=== PATIENT | female | born 1940 | race Caucasian/White ===

== ENCOUNTER 2020-07-18 10:24 | Outpatient (CLI) | payer MEDICARE, SELFPAY | END 2020-07-18 10:25 | disposition home or self-care (01) | LOC: ANHCOVIDVC 10:24 | PROVIDERS: PCP Family Medicine; Visit Provider Family Medicine | DX: Z23 Encounter for immunization (principal) | CPT/HCPCS: 0001A; 91300 ==

== ENCOUNTER 2020-08-08 10:24 | Outpatient (CLI) | payer MEDICARE, SELFPAY | END 2020-08-08 10:25 | disposition home or self-care (01) | LOC: ANHCOVIDVC 10:24 | PROVIDERS: PCP Family Medicine; Visit Provider Family Medicine | DX: Z23 Encounter for immunization (principal) | CPT/HCPCS: 0002A; 91300 ==

== ENCOUNTER 2021-03-23 11:38 | Outpatient (CLI) | payer MEDICARE, SELFPAY ==
--- NOTE | ~2021-03-23 | XR_ITS ---
EXAMINATION: XR elbow RT min 3V DATE: 03/23/2021 12:24 INDICATION: Right elbow joint effusion. TECHNIQUE: 5 views of right elbow were obtained. 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 The d istal fracture fragment demonstrates impaction and anterior and medial angulation.. Osteopenia is not ed. There is an acute oblique fracture of proximal ulna just distal to the coronoid process. The dist al fracture fragment demonstrates 1 mm radial displacement. Partially visualized is an old healed fra cture deformity of ulnar diaphysis. There is mild elbow joint osteoarthritis. IMPRESSION: 1. Acute oblique fracture of proximal ulna. 2. 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 Reviewed, dictated and finalized at location A. [employer]
== END 2021-03-23 11:39 | disposition home or self-care (01) ==
LOC: ANHIMG 11:45
PROVIDERS: PCP Family Medicine; Visit Provider Family Medicine
DX: S52.091A Other fracture of upper end of right ulna, initial encounter for closed fracture (principal); S42.491K Other displaced fracture of lower end of right humerus, subsequent encounter for fracture with nonunion; M25.429 Effusion, unspecified elbow
CPT/HCPCS: 73080

== ENCOUNTER 2021-12-13 18:00 | Emergency (ER) | payer MEDICARE, SELFPAY ==
--- NOTE | ~2021-12-13 | CT_ITS ---
EXAMINATION: CT brain wo con DATE: 12/13/2021 18:56 INDICATION: head injury, on blood thinner . TECHNIQUE: Computed tomography (CT) of the head was performed without intravenous contrast. The mA wa s adjusted according to patient size. Iterative reconstruction technique was employed. The dose-lengt h product was 605.33 mGy-cm. COMPARISON: 09/06/2018 FINDINGS: No acute intracranial hemorrhage or extra-axial fluid collection. No hydrocephalus, mass, or herniation. No acute ischemic infarct. Unremarkable dural venous sinus attenuation. No acute osseous abnormality. The aerated spaces are clear. Moderate atrophy and chronic white matter change. Atherosclerotic intracranial calcification. Bilater al lens replacements. IMPRESSION: No acute intracranial process. Reviewed, dictated and finalized at location K.
--- NOTE | ~2021-12-13 | XR_ITS ---
EXAM: XR pelvis 1-2V DATE: 12/13/2021 19:17 HISTORY: fall today. hx kyphoscoliosis, arthritis, osteoporosis . COMPARISON: None available. FINDINGS: Decreased mineralization. No fracture or dislocation. No lytic or blastic lesion. Severe l umbar scoliosis and multilevel degenerative disc disease. Moderate bilateral hip osteoarthritis. No e rosion or periosteal change. Soft tissues within normal limits. IMPRESSION: No acute osseous finding in the pelvis. Reviewed, dictated and finalized at location K.
--- NOTE | ~2021-12-13 | XR_ITS ---
EXAMINATION: XR chest 1V portable Exam Date/Time: 12/13/2021 19:09 CDT HISTORY: Fall today. hx high bp Comparison: None available. RESULT: Lines, tubes, and devices: Bilateral shoulder arthroplasties, incompletely evaluated. Lungs and pleura: Senescent changes, otherwise clear. Cardiomediastinal silhouette: Arch calcification. Other: Severe thoracolumbar scoliosis and osteoporosis. IMPRESSION: No acute cardiopulmonary process. Reviewed, dictated and finalized at location K.
--- NOTE | ~2021-12-13 | CT_ITS ---
EXAMINATION: CT cervical spine wo con DATE: 12/13/2021 18:56 INDICATION: Fall TECHNIQUE: Computed tomography (CT) of the cervical spine was performed without intravenous contrast. Automated exposure control and iterative reconstruction technique were employed. The dose-length pro duct was 175.72 mGy-cm. COMPARISON: 09/06/2018 FINDINGS: Exam limited by severe scoliosis, osteoporosis, and extensive beam hardening artifact. Vertebral Body Alignment: Exaggerated cervical lordosis. Thoracic kyphosis. Craniocervical and atlantoaxial alignment: Moderate degenerative change. Alignment intact. Osseous structures/fracture: No evidence of a lytic or blastic process in the visualized spine. No e vidence of acute cervical fracture fracture. Incidental note of severe height loss at T1, with fractu re lines that appear to involve the posterior cortex, new since the comparison. Cervical soft tissues: The paraspinal soft tissues planes are maintained. Degenerative changes: Multilevel severe degenerative disc disease and facet arthropathy. No severe ce ntral canal or neural foraminal narrowing. IMPRESSION: No acute fracture or traumatic malalignment in the cervical spine. Acute versus chronic severe compre ssion deformity at T1, likely representing a burst fracture given apparent posterior cortex involveme nt. No retropulsion of fragments. Reviewed, dictated and finalized at location K. IMPRESSION: No acute fracture or traumatic malalignment in the cervical spine. Acute versus chronic severe compression deformity at T1, likely representing a burst fractu re given apparent posterior cortex involvement. No retropulsion of fragments.
[2021-12-13 18:03] VITALS: BP 126/86; PULSE 95; RESP 20; TEMP 36.2; O2SAT 93
--- NOTE | 2021-12-13 19:00 | ECG_ITS ---
Measurements Intervals [place] Rate: 99 P: 70 [place]: 172 QRS: -76 QRSD: 97 T: 32 QT: 362 QTc: 465 Interpretive Statements SINUS RHYTHM LEFT ANTERIOR FASCICULAR BLOCK [QRS AXIS <= -45, QR IN I, RS IN II] POSSIBLE ANTERIOR MYOCARDIAL INFARCTION , OF INDETERMINATE AGE [30 ms Q WAVE IN V3/V4, OR R < 0.2 mV IN V4] NO PREVIOUS ECG AVAILABLE FOR COMPARISON Electronically Signed On 12-14-2021 10:19:17 CDT by Denise Hall MD
[2021-12-13 19:16] VITALS: BP 150/80; PULSE 100; RESP 21; O2SAT 100
[2021-12-13 19:28] LABS: Basophils Absolute Auto 0.1 K/mm3 (0.0-0.1); Basophils Percent Auto 0.8 % (0.2-1.2); Eosinophils Absolute Auto 0.1 K/mm3 (0-0.3); Hematocrit 39.2 % (37.0-47.0); Hemoglobin 10.4 g/dL (12.0-15.0); Immature Granulocyte Absolute 0.11 K/mm3 (0.00-0.031); Immature Granulocyte Percent A 1.2 % (0-0.5); Lymphocytes Absolute Auto 2.28 K/mm3 (0.9-3.2); Lymphocytes Percent Auto 25.3 % (18.3-44.2); Mean Corpuscular HGB Conc 26.5 g/dl (32-36); Mean Corpuscular Hemoglobin 18.9 pg (26-34); Mean Corpuscular Volume 71.1 fl (80-100); Monocytes Absolute Auto 0.8 K/mm3 (0.1-0.6); Monocytes Percent Auto 8.4 % (2.6-8.5); Neutrophils Absolute Auto 5.7 K/mm3 (1.3-6.7); Neutrophils Percent Auto 63.3 % (45.5-73.1); Platelet Count Result 287 k/mm3 (150-375); Red Blood Count 5.51 M/mm3 (4.2-5.4); Red Cell Distribution Width 19.3 % (11.5-14.5)
[2021-12-13 19:39] LABS: Anion Gap 11 mmol/L (8-16); Blood Urea Nitrogen 14 mg/dL (7-17); Calcium 8.9 mg/dL (8.4-10.2); Carbon Dioxide 30 mmol/L (22-30); Chloride 98 mmol/L (98-107); Estimated Glomerular Filt Rate > 60; Glucose 90 mg/dL (65-110); Potassium 3.6 mmol/L (3.4-5.0); Sodium 139 mmol/L (137-145)
[2021-12-13 19:43] LABS: INR 1.2; Prothrombin Time 15.1 Seconds (11.1-14.7)
[2021-12-13 19:46] LABS: Hypochromasia 2+ (NORMAL); Platelet Estimate Adequate (Adequate)
[2021-12-13 19:47] LABS: Ovalocytes 1+ (NORMAL); Target Cells 1+ (NORMAL)
[2021-12-13 19:50] LABS: Troponin I < 0.012 ng/mL (0.000-0.034)
[2021-12-13 20:23] LABS: Appearance Urine Slightly Cloudy (Clear); Bilirubin Urine Negative (Negative); Blood Urine Negative (Negative); Glucose Urine UA Negative (Negative); Ketones Urine Negative (Negative); Leukocyte Esterase Ur 2+ LEU/UL (Negative); Nitrate Urine Positive (Negative); Protein Urine Negative (Negative); Urobilinogen Urine 0.2 mg/dL (<2.0)
[2021-12-13 20:26] LABS: Add Urine Microscopic? YES; Color Urine Light Yellow (Yellow)
[2021-12-13 20:29] LABS: Bacteria Urine Trace /hpf; Mucus Urine Rare /lpf; RBC Urine 0-2 /hpf (0-2)
[2021-12-13] MEDS: TETANUS,DIPHTHERIA,AC PERTUSSIS ADULT (0.5 ML) BOOSTRIX IM (20:39)
[2021-12-13 20:43] VITALS: BP 112/85; PULSE 100; RESP 23; O2SAT 94
[2021-12-13] MEDS: CEPHALEXIN 500 MG CAPSULE PO (21:04)
--- NOTE | 2021-12-13 21:08 | ED.GENADULT ---
HPI - General Adult General Chief complaint: Fall Stated complaint: GLF c LOC Time Seen by Provider: 12/13/21 18:34 History of Present Illness HPI narrative: This is an 81-year-old female presenting ED following a fall on thinners. Patient says that she was at dinner where she had an alcoholic drink. She then does not remember what happened until she woke up in an ambulance. Patient has a hematoma and some pain over the right forehead. She denies headache, chest pain, difficulty breathing, abdominal pain, nausea vomiting diarrhea, fever chills. She denies numbness tingling weakness in extremity.She has no complaints this time. She does not know her last tetanus shot was. Related Data Home Medications Medication Instructions Recorded Confirmed calcium carbonate 600 mg-vitamin cap PO 04/14/19 03/23/21 D3 5 mcg (200 unit) capsule (Calcium 600 + D(3)) calcium polycarbophil 625 mg tablet 1,250 mg PO DAILY 04/14/19 03/23/21 cholecalciferol (vitamin D3) 125 5,000 unit PO DAILY 04/14/19 03/23/21 mcg (5,000 unit) tablet folic acid 400 mcg tablet 0.4 mg PO DAILY 04/14/19 03/23/21 multivit with 1 tablet PO DAILY 04/14/19 03/23/21 [id number]-EK-lutein 8 mg iron-400 mcg-300 mcg tablet (Centrum Silver Women) omega3-dha 200 mg-epa 300 mg-othr cap PO 04/14/19 03/23/21 om3 100 mg-fish oil 1,000 mg capsule Allergies Allergy/AdvReac Type Severity Reaction Status Date / Time Sulfa (Sulfonamide Allergy Mild rash Verified 03/23/21 13:38 Antibiotics) Review of Systems Review of Systems: CONSTITUTIONAL: Denies night sweats. EYES: No eye pain ENT: Denies rhinorrhea CARDIOVASCULAR: Denies palpitations RESPIRATORY: Denies hemoptysis GASTROINTESTINAL: Denies hematemesis GENITOURINARY: Denies hematuria. SKIN: Denies rash MUSCULOSKELETAL: Denies myalgia. NEUROLOGIC: Denies weakness. PSYCHIATRIC: Denies delusions PMFSH Past Medical History Medical History Arthritis BP (high blood pressure) Compensated hypothyroidism RICK (generalized anxiety disorder) Kyphoscoliosis Osteoporosis Underweight Vaginal prolapse without uterine prolapse Surgical History Surgical History H/O partial thyroidectomy Social History Social History Social History: , lives with her spouse Smoking packs per day: 0 Smoking cigarettes per day: 0.0 Years smoked: 0 Smoking pack-years: 0.00 Smoking status: Never smoker Second hand tobacco smoke exposure: No Alcohol intake: current Drinks per week: 7 Alcohol use details: 1 drink w/ dinner Substance use: never Substance use type: does not use Gender identity (if verbalized by the patient): Female Sexual Orientation (if Verbalized by the Patient): Straight or Heterosexual Spiritual care concerns: No Agree to blood products: Yes Exam Narrative: APPEARANCE: No apparent distress. Head: atraumatic. EYES: PERRLA/EOMI, NOSE: Normal no drainage NECK: Supple, Trachea midline RESPIRATORY: CTAB, No increased work of breathing. CARDIOVASCULAR: S1S2 appreciated ABDOMINAL: Soft, nontender, nondistended, MUSCULOSKELETAl: No obvious deformities NEURO: Alert. Moving 4/4 extremities SKIN:: Warm, dry. Normal color PSYCHIATRIC: Normal affect Course Vital Signs Vital signs: Vital Signs Temperature 97.2 F L 12/13/21 18:03 Pulse Rate 95 12/13/21 18:03 Respiratory Rate 20 12/13/21 18:03 Blood Pressure 126/86 12/13/21 18:03 Pulse Oximetry 93 12/13/21 18:03 Temperature 97.2 F L 12/13/21 18:03 Pulse Rate 100 12/13/21 20:43 Respiratory Rate 23 H 12/13/21 20:43 Blood Pressure 112/85 12/13/21 20:43 Pulse Oximetry 94 12/13/21 20:43 Procedures Laceration Laceration 1: Date: 12/13/21 Site: face Side (If applicable): right
== END 2021-12-13 21:42 | disposition home or self-care (01) ==
PROVIDERS: Emergency Provider Emergency Medicine; PCP Family Medicine
DX: N39.0 Urinary tract infection, site not specified (principal); S01.81XA Laceration without foreign body of other part of head, initial encounter; Z79.01 Long term (current) use of anticoagulants; M19.90 Unspecified osteoarthritis, unspecified site; I10 Essential (primary) hypertension; E03.9 Hypothyroidism, unspecified; F41.9 Anxiety disorder, unspecified; W19.XXXA Unspecified fall, initial encounter; Z23 Encounter for immunization
CPT/HCPCS: 12011; 36415; 70450; 71045; 72125; 72170; 80048; 81001; 84484; 85025; 85610; 87077; 87086; 87186; 90471; 90715; 93005; 99284; A9270

== ENCOUNTER 2022-02-15 09:35 | Emergency (ER) | payer MEDICARE, SELFPAY ==
[2022-02-15 09:58] VITALS: BP 126/65; PULSE 98; RESP 18; TEMP 36.5; O2SAT 98
--- NOTE | 2022-02-15 13:13 | ED.GENADULT ---
HPI - General Adult General Chief complaint: Unspecified Stated complaint: hemmoroid pain Time Seen by Provider: 02/15/22 12:47 History of Present Illness HPI narrative: Patient is a 1-year-old female here for evaluation of a mass felt in her rectum for the past 4 weeks. Patient has been seen in the ED and also has seen a GI specialist for this issue and was diagnosed with rectal prolapse. She was encouraged to have a flexible sigmoidoscopy and pelvic floor therapy but patient has not pursued either of these interventions yet. She presents today due to increased discomfort and increased sensation of prolapse. Also notes fecal incontinence. She denies any significant rectal bleeding, low back pain, saddle anesthesia, fevers or chills. Related Data Home Medications Medication Instructions Recorded Confirmed calcium carbonate 600 mg-vitamin cap PO 04/14/19 03/23/21 D3 5 mcg (200 unit) capsule (Calcium 600 + D(3)) calcium polycarbophil 625 mg tablet 1,250 mg PO DAILY 04/14/19 03/23/21 cholecalciferol (vitamin D3) 125 5,000 unit PO DAILY 04/14/19 03/23/21 mcg (5,000 unit) tablet folic acid 400 mcg tablet 0.4 mg PO DAILY 04/14/19 03/23/21 multivit with 1 tablet PO DAILY 04/14/19 03/23/21 jyynzhax-kebv-OX-lutein 8 mg iron-400 mcg-300 mcg tablet (Centrum Silver Women) omega3-dha 200 mg-epa 300 mg-othr cap PO 04/14/19 03/23/21 om3 100 mg-fish oil 1,000 mg capsule Allergies Allergy/AdvReac Type Severity Reaction Status Date / Time Sulfa (Sulfonamide Allergy Mild rash Verified 01/31/22 08:30 Antibiotics) Review of Systems Review of Systems: Gen: Denies fevers or chills Eyes: Denies eye pain or visual change ENT: Denies congestion Respiratory: Denies shortness of breath or cough CV: Denies chest pain or palpitations GI: Reports rectal mass . : denies burning, urgency, frequency or hematuria Musculoskeletal: Denies back pain or muscle pain Neuro: Denies numbness, tingling, weakness or focal weakness Skin: Denies rash Except as documented, all other systems reviewed and negative PMFSH Past Medical History Medical History Arthritis BP (high blood pressure) Compensated hypothyroidism RICK (generalized anxiety disorder) Kyphoscoliosis Osteoporosis Rectal prolapse Underweight Vaginal prolapse without uterine prolapse Surgical History Surgical History H/O partial thyroidectomy Social History Social History Social History: , lives with her spouse Smoking packs per day: 0 Smoking cigarettes per day: 0.0 Years smoked: 0 Smoking pack-years: 0.00 Smoking status: Never smoker Second hand tobacco smoke exposure: No Alcohol intake: current Drinks per week: 7 Alcohol use details: 1 drink w/ dinner Substance use: never Substance use type: does not use Gender identity (if verbalized by the patient): Female Sexual Orientation (if Verbalized by the Patient): Straight or Heterosexual Spiritual care concerns: No Agree to blood products: Yes Exam Narrative: APPEARANCE: Thin. Head: Normocephalic and atraumatic. EYES: PERRLA/EOMI, conjunctivae clear NOSE: No nasal drainage EARS: External ear normal in appearance THROAT: Oropharynx is clear. Mucous membranes are moist. NECK: Supple. No adenopathy, no masses. RESPIRATORY: Airway patent, respirations nonlabored. Clear to auscultation bilaterally, no rales, rhonchi, wheezing. CARDIOVASCULAR: Regular rate and rhythm without murmurs, rubs, or gallops. ABDOMINAL: Normoactive bowel sounds. Soft, nontender, nondistended. No rebound tenderness or guarding. : No external hemorrhoids noted on exam. Internal rectal exam with decreased tone. When patient stands, there is a protrusion at the anus that is easily reducible. She is incontinent of s
[2022-02-15 14:01] VITALS: BP 128/68; PULSE 68; RESP 18; O2SAT 98
== END 2022-02-15 14:02 | disposition home or self-care (01) ==
PROVIDERS: Emergency Provider Emergency Medicine; PCP Nurse Practitioner Family
DX: K62.3 Rectal prolapse (principal); I10 Essential (primary) hypertension; E03.9 Hypothyroidism, unspecified; F41.1 Generalized anxiety disorder; M81.0 Age-related osteoporosis without current pathological fracture; Z79.01 Long term (current) use of anticoagulants
CPT/HCPCS: 99281

== ENCOUNTER 2022-12-21 12:37 | Outpatient (CLI) | payer MEDICARE, SELFPAY ==
[2022-12-21 13:02] LABS: Hematocrit 51.6 % (37.0-47.0); Hemoglobin 16.8 g/dL (12.0-15.0); Mean Corpuscular HGB Conc 32.6 g/dl (32-36); Mean Platelet Volume 9.9 fl (7.4-10.4); Platelet Count Result 488 k/mm3 (150-375); Red Cell Distribution Width 14.8 % (11.5-14.5)
[2022-12-21 13:13] LABS: Band Neutrophils Percent 1 % (0-6); Giant Platelets Present; Lymphocytes Absolute Manual 1.69 K/mm3 (1.1-4.5); Metamyelocytes Percent 1 %; Monocytes Absolute Manual 0.39 K/mm3 (0.1-0.90); Monocytes Percent Manual 3 % (3-9); Neutrophils Absolute Manual 10.79 K/mm3 (1.7-7.2); Neutrophils Percent Manual 82 % (46-73); Platelet Estimate Increased (Adequate); Schistocytes None Seen (NORMAL); Total Cells Counted 100
[2022-12-25 11:04] LABS: Erythropoietin (EPO) 7.4 mIU/mL (2.6-18.5)
[2022-12-25 15:24] LABS: BCR/abl Prior Result Not Given
[2022-12-25 16:11] LABS: BCR/abl P190 Not Detected; BCR/abl P210 Not Detected
[2022-12-25 16:12] LABS: BCR/abl P190 Chg YES; BCR/abl P210 Chg YES
[2022-12-28 10:13] LABS: Exon 14; Gene JAK2; JAK2 V617F Mutation Detected (Not Detected); Mutation Frequency 22.4; Mutation Type missense; Specimen Source Blood
== END 2022-12-21 12:38 | disposition home or self-care (01) ==
LOC: ANHLAB 12:40
PROVIDERS: PCP Nurse Practitioner Family; Visit Provider Internal Medicine Hematology & Oncology
DX: D72.829 Elevated white blood cell count, unspecified (principal); D45 Polycythemia vera
CPT/HCPCS: 36415; 81206; 81207; 81270; 82668; 85025; 88184

== ENCOUNTER 2023-02-23 20:17 | Emergency (ER) | payer MEDICARE, SELFPAY ==
--- NOTE | ~2023-02-23 | CT_ITS ---
EXAMINATION: CT brain wo con DATE: 02/23/2023 21:41 INDICATION: Head injury post fall TECHNIQUE: Computed tomography (CT) of the head was performed without intravenous contrast. Sagittal and coronal reconstructions were performed. The mA was adjusted according to patient size. Iterative reconstruction technique was employed. The dose-length product was 681.00 mGy-cm. COMPARISON: head CT dated 12/13/2021 FINDINGS: Occipital scalp laceration with skin stacey. No fracture. No acute intracranial hemorrhage, acute in farction or abnormal extra axial fluid collection. Small old right cerebellar infarct. There is moder ate scattered white matter hypoattenuation consistent with chronic small vessel ischemic disease. Sym metric prominence of the sulci and ventricles consistent with moderate age-appropriate diffuse cerebr al volume loss. No mass/mass effect. Changes of bilateral intraocular lens replacement. The orbits an d mastoid air cells are normal. Mild mucosal thickening at the right ethmoid sinus. IMPRESSION: 1. No fracture or acute intracranial process. 2. Small old right cerebellar infarct. 3. Age-related changes including moderate diffuse volume loss and moderate scattered white matter hyp oattenuation consistent with chronic small vessel ischemic disease. Reviewed, dictated and finalized at location A. IMPRESSION: 1. No fracture or acute intracranial process. 2. Small old right cerebellar infarct. 3. Age-related changes including moderate diffuse volume loss and moderate scat tered white matter hypoattenuation consistent with chronic small vessel ischemi c disease.
--- NOTE | ~2023-02-23 | XR_ITS ---
EXAMINATION: XR chest 1V portable DATE: 02/23/2023 20:50 INDICATION: Dyspnea TECHNIQUE: frontal and lateral views of the chest were obtained. COMPARISON: Chest radiograph dated 12/13/2021 FINDINGS: Minimal right basilar atelectasis/scarring. No other airspace opacities, pulmonary edema, pleural eff usion or pneumothorax. Heart size is normal. Gas within a large retrocardiac hiatal hernia. Bilateral total shoulder arthroplasties. Prominent S-shaped thoracolumbar scoliosis with moderate to severe sp ondylosis. Hepatic and splenic calcifications consistent with old granulomatous disease. IMPRESSION: 1. Persistent minimal right basilar atelectasis/scarring. 2. Large hiatal hernia. Reviewed, dictated and finalized at location A.
--- NOTE | ~2023-02-23 | CT_ITS ---
EXAMINATION: CT cervical spine wo con DATE: 02/23/2023 21:43 INDICATION: Head injury post fall TECHNIQUE: Computed tomography (CT) of the cervical spine was performed without intravenous contrast. Automated exposure control and iterative reconstruction technique were employed. The dose-length pro duct was 292.11 mGy-cm. COMPARISON: 12/13/2021 FINDINGS: Evaluation at the level of C4-C6 is mildly limited by streak artifact resulting from bilateral total shoulder arthroplasties. Mild cervicothoracic levocurvature at the cephalad aspect of the nonvisualiz ed thoracic dextroscoliosis as seen on the prior chest radiograph. 2-3 mm anterolisthesis C7 on T1-T2 -3 mm retrolisthesis C5 on C6 and 102 mm anterolisthesis C4 on C5 which appear unchanged. Chronic T1 burst fracture with 60% anterior vertebral body height loss and couple millimeter retropulsion at the caudal aspect of the posterior wall. Recent-appearing T4 burst fracture with 20% vertebral body heig ht loss and resultant oriented sclerotic fracture plane which extends across the posterior wall witho ut significant retropulsion. This is new since the prior study. Cervical vertebral body heights are n ormal. Severe disc height loss with degenerative endplate changes and severe uncovertebral osteoarthr itis at C4-C5 through C6-C7. Mild disc height loss at C3-C4. There is multilevel mild central canal s tenosis resulting from either posterior disc osteophyte complexes, the patient. Mild spondylolisthesi s and the mild retropulsion at T1. There is also multilevel severe facet osteoarthritis throughout th e cervical and upper thoracic spine. There is posterior fusion across the left C7-T1 and bilateral T1 -T2 facet joints. Moderate neural foraminal stenosis on the right at C5-C6 with mild neural from sten osis at majority the remaining cervical levels. Tortuous aortic arch. There are some scattered mucous plugging in the visualized bilateral upper lungs with pneumatocele in the left upper lobe. Cervical soft tissues are unremarkable. IMPRESSION: 1. Recent-appearing, potentially acute T4 burst fracture with 20% vertebral body height loss but with out retropulsion. 2. Unchanged chronic T1 burst fracture with 60% anterior vertebral body height loss. 3. Severe cervical spondylosis with no acute osseous abnormality. Reviewed, dictated and finalized at location A. IMPRESSION: 1. Recent-appearing, potentially acute T4 burst fracture with 20% vertebral bod y height loss but without retropulsion. 2. Unchanged chronic T1 burst fracture with 60% anterior vertebral body height loss. 3. Severe cervical spondylosis with no acute osseous abnormality.
[2023-02-23 20:21] VITALS: BP 100/66; PULSE 92; RESP 18; TEMP 36.5; O2SAT 85
--- NOTE | 2023-02-23 20:28 | PC.NURSE ---
Pt placed on 2 L per NC for low o2 saturation
[2023-02-23 20:29] VITALS: O2SAT 95
--- NOTE | 2023-02-23 20:38 | ECG_ITS ---
Measurements Intervals [place] Rate: 87 P: 71 [place]: 153 QRS: 180 QRSD: 151 T: -3 QT: 388 QTc: 469 Interpretive Statements SINUS RHYTHM LEFT ATRIAL ENLARGEMENT RIGHT BUNDLE BRANCH BLOCK Electronically Signed On 02-24-2023 12:57:51 CDT by Shaggy Dodge M.D.
[2023-02-23 21:17] LABS: Basophils Absolute Auto 0.1 K/mm3 (0.0-0.1); Basophils Percent Auto 0.9 % (0.2-1.2); Eosinophils Absolute Auto 0.1 K/mm3 (0-0.3); Eosinophils Percent Auto 0.4 % (0-4.4); Hemoglobin 14.7 g/dL (12.0-15.0); Immature Granulocyte Absolute 0.36 K/mm3 (0.00-0.031); Immature Granulocyte Percent A 2.7 % (0-0.5); Lymphocytes Absolute Auto 2.81 K/mm3 (0.9-3.2); Lymphocytes Percent Auto 20.9 % (18.3-44.2); Mean Corpuscular HGB Conc 32.7 g/dl (32-36); Mean Corpuscular Volume 91.8 fl (80-100); Mean Platelet Volume 10.1 fl (7.4-10.4); Monocytes Absolute Auto 0.9 K/mm3 (0.1-0.6); Monocytes Percent Auto 6.7 % (2.6-8.5); Neutrophils Absolute Auto 9.2 K/mm3 (1.3-6.7); Neutrophils Percent Auto 68.4 % (45.5-73.1); Platelet Count Result 461 k/mm3 (150-375); Red Cell Distribution Width 14.3 % (11.5-14.5); White Blood Count 13.5 K/mm3 (4.5-10.0)
[2023-02-23 21:30] LABS: Lactic Acid Reflex 2.2 mmol/L (0.7-2.0)
[2023-02-23 21:32] LABS: Alanine Aminotransferase 23 U/L (6-35); Albumin Level 3.6 g/dL (3.5-5.1); Alkaline Phosphatase 75 U/L (38-126); Anion Gap 6 mmol/L (8-16); Aspartate Amino Transferase 38 U/L (14-36); Bilirubin,Total 0.5 mg/dL (0.2-1.3); Blood Urea Nitrogen 14 mg/dL (7-17); Calcium 9.1 mg/dL (8.4-10.2); Carbon Dioxide 36 mmol/L (22-30); Chloride 89 mmol/L (98-107); Estimated Glomerular Filt Rate > 60; Glucose 75 mg/dL (65-110); Magnesium 1.6 mg/dL (1.6-2.3); Potassium 3.8 mmol/L (3.4-5.0); Sodium 131 mmol/L (137-145)
[2023-02-23 21:35] LABS: INR 2.4; Prothrombin Time 28.2 Seconds (11.1-14.7)
[2023-02-23 21:36] LABS: Partial Thromboplastin Time 46.6 SECONDS (22.3-36.8)
[2023-02-23 21:43] LABS: NT Pro B Type Natriuretic Pept 1630 pg/mL (19.9-100); Troponin I < 0.012 ng/mL (0.000-0.034)
[2023-02-23] MEDS: TETANUS,DIPHTHERIA,AC PERTUSSIS ADULT (0.5 ML) BOOSTRIX IM (21:51)
[2023-02-23 21:52] LABS: Influenza A QL RT-PCR Negative (Negative); Influenza B QL RT-PCR Negative (Negative); SARS-CoV-2 RNA PCR Negative (Negative)
[2023-02-23 22:03] LABS: Procalcitonin 0.1 ng/mL
--- NOTE | 2023-02-23 22:04 | ED.GENADULT ---
HPI - General Adult General Chief complaint: Fall Stated complaint: fall, head lac Time Seen by Provider: 02/23/23 20:21 History of Present Illness HPI narrative: Patient is a 82-year-old female presents emergency department with chief complaint of fall. Patient reports she lives at an assisted living facility and was stepping back from the microwave and fell backwards. The patient states she did not have a loss of consciousness reports she remembers the whole thing reports she has a laceration of the back of her head and otherwise feels okay the patient does report that she has been having some shortness of breath intermittently and has had exertional shortness of breath. Patient denies fever denies chills denies other complaints. Patient does also reports a skin tear on her right forearm Related Data Home Medications Medication Instructions Recorded Confirmed calcium carbonate 600 mg-vitamin cap PO 04/14/19 03/23/21 D3 5 mcg (200 unit) capsule (Calcium 600 + D(3)) calcium polycarbophil 625 mg tablet 1,250 mg PO DAILY 04/14/19 03/23/21 cholecalciferol (vitamin D3) 125 5,000 unit PO DAILY 04/14/19 03/23/21 mcg (5,000 unit) tablet folic acid 400 mcg tablet 0.4 mg PO DAILY 04/14/19 03/23/21 hpzsbmgo-eixm-ywmf 8 mg-folic 400 1 tablet PO DAILY 04/14/19 03/23/21 mcg-K 50 mcg-lutein 300 mcg tablet (Centrum Silver Women) omega3-dha 200 mg-epa 300 mg-othr cap PO 04/14/19 03/23/21 om3 100 mg-fish oil 1,000 mg capsule Allergies Allergy/AdvReac Type Severity Reaction Status Date / Time Sulfa (Sulfonamide Allergy Mild rash Verified 02/23/23 20:25 Antibiotics) Review of Systems Review of Systems: A 10 system review of systems was completed on the patient and is negative except for what is stated in the HPI. Nursing and ancillary documentation was reviewed. [facility] Past Medical History Medical History Arthritis BP (high blood pressure) Compensated hypothyroidism RICK (generalized anxiety disorder) Kyphoscoliosis Osteoporosis Rectal prolapse Underweight Vaginal prolapse without uterine prolapse Surgical History Surgical History H/O partial thyroidectomy Social History Social History Social History: , lives with her spouse Smoking packs per day: 0 Smoking cigarettes per day: 0.0 Years smoked: 0 Smoking pack-years: 0.00 Smoking status: Never smoker Second hand tobacco smoke exposure: No Alcohol intake: current Drinks per week: 7 Alcohol use details: 1 drink w/ dinner Substance use: never Substance use type: does not use Living arrangements: with family Occupation/Education: retired Gender identity (if verbalized by the patient): Female Sexual Orientation (if Verbalized by the Patient): Straight or Heterosexual Spiritual care concerns: No Agree to blood products: Yes Exam Narrative: GENERAL: Well-appearing, well-nourished, and in no acute distress. HEAD: Normocephalic, 1.5 cm laceration of the scalp. EYES: PERRLA and EOMI. ENT: Nares clear, no rhinorrhea or epistaxis. Mucous membranes moist. NECK: Supple. CHEST: Clear to auscultation. No respiratory distress. HEART: Regular rate and rhythm. No murmur heard. Normal peripheral pulses. ABDOMEN: Soft, nontender, nondistended, normal active bowel sounds. EXTREMITIES: Normal range of motion. No edema. SKIN: Warm, dry, no rash. NEURO: No focal deficits. Alert and oriented x3. PSYCH: Normal mood and affect. Course Vital Signs Vital signs: Vital Signs Temperature 36.5 C 02/23/23 20:21 Pulse Rate 92 02/23/23 20:21 Respiratory Rate 18 02/23/23 20:21 Blood Pressure 100/66 02/23/23 20:21 Pulse Oximetry 85 L 02/23/23 20:21 Oxygen Delivery Room Air 02/23/23 20:21 Temperature 36.5
[2023-02-23 22:15] VITALS: BP 134/79; PULSE 95; O2SAT 89
[2023-02-23 22:52] LABS: Appearance Urine Turbid (Clear); Bacteria Urine 4+ /hpf; Bilirubin Urine Negative (Negative); Blood Urine 3+ (Negative); Color Urine Yellow (Yellow); Glucose Urine UA Negative (Negative); Ketones Urine Trace mg/dL (Negative); Leukocyte Esterase Ur 3+ LEU/UL (Negative); Need Manual Microscopic Reviewed; Nitrate Urine Negative (Negative); Protein Urine Trace mg/dL (Negative); RBC Urine 51-100 /hpf (0-2); Specific Grav Ur 1.016 (1.001-1.035); Squamous Epithelial Cell Urine None seen /hpf (Few); Urobilinogen Urine 0.2 mg/dL (<2.0); WBC Clumps Urine Present /HPF; WBC Urine >100 /hpf
[2023-02-23 22:53] LABS: Add Urine Microscopic? YES
[2023-02-23] MEDS: CEPHALEXIN 500 MG CAPSULE PO (23:13)
[2023-02-23 23:20] VITALS: BP 126/81; PULSE 90; RESP 18; O2SAT 89
[2023-02-24 00:14] LABS: Reflex Lactic Acid Yes or No Add Lactic
== END 2023-02-23 23:20 ==
PROVIDERS: Emergency Provider Emergency Medicine
DX: S01.01XA Laceration without foreign body of scalp, initial encounter (principal); S22.040A Wedge compression fracture of fourth thoracic vertebra, initial encounter for closed fracture; N39.0 Urinary tract infection, site not specified; M41.9 Scoliosis, unspecified; R06.02 Shortness of breath; Z23 Encounter for immunization; Z20.822 Contact with and (suspected) exposure to COVID-19; I10 Essential (primary) hypertension; E89.0 Postprocedural hypothyroidism; R63.6 Underweight; Z68.1 Body mass index [BMI] 19.9 or less, adult; M19.90 Unspecified osteoarthritis, unspecified site; M81.0 Age-related osteoporosis without current pathological fracture; Z79.01 Long term (current) use of anticoagulants; I44.7 Left bundle-branch block, unspecified; R94.31 Abnormal electrocardiogram [ECG] [EKG]; K44.9 Diaphragmatic hernia without obstruction or gangrene; M47.812 Spondylosis without myelopathy or radiculopathy, cervical region; M48.54XA Collapsed vertebra, not elsewhere classified, thoracic region, initial encounter for fracture; W18.39XA Other fall on same level, initial encounter
CPT/HCPCS: 12001; 36415; 70450; 71045; 72125; 80053; 81001; 83605; 83735; 83880; 84145; 84484; 85025; 85610; 85730; 87077; 87086; 87186; 87636; 90471; 90715; 93005; 99284; A9270

== ENCOUNTER 2023-04-03 20:50 | Emergency (ER) | payer MEDICARE, SELFPAY ==
--- NOTE | ~2023-04-03 | CT_ITS ---
EXAMINATION: CT cervical spine wo con DATE: 04/03/2023 21:39 INDICATION: fall, on blood thinners TECHNIQUE: Computed tomography (CT) of the cervical spine was performed without intravenous contrast. Automated exposure control and iterative reconstruction technique were employed. The dose-length pro duct was 179.09 mGy-cm. COMPARISON: 02/23/2023. FINDINGS: Vertebral Body Alignment: Intact. Stable grade 1 listheses at C4-5, C5-6, and C7-T1. Craniocervical and atlantoaxial alignment: Moderate degenerative change. Alignment intact. Osseous structures/fracture: No evidence of a lytic or blastic process in the visualized spine. No e vidence of acute fracture. Stable moderate burst deformity at T1. Stable mild burst deformity at T4. Cervical soft tissues: The paraspinal soft tissues planes are maintained. Biapical pleural scarring. Left upper lobe pneumatocele. Degenerative changes: Multilevel degenerative disc disease and facet arthropathy. No severe central c anal or neural foraminal narrowing.. IMPRESSION: No acute fracture or traumatic malalignment in the cervical spine. Reviewed, dictated and finalized at location K. ON BLOCKER
--- NOTE | ~2023-04-03 | CT_ITS ---
EXAMINATION: CT brain wo con DATE: 04/03/2023 21:36 INDICATION: fall, on blood thinners . TECHNIQUE: Computed tomography (CT) of the head was performed without intravenous contrast. The mA wa s adjusted according to patient size. Iterative reconstruction technique was employed. The dose-lengt h product was 681.00 mGy-cm. COMPARISON: 02/23/2023. FINDINGS: No acute intracranial hemorrhage or extra-axial fluid collection. No hydrocephalus, mass, or herniation. No acute ischemic infarct. Unremarkable dural venous sinus attenuation. No acute osseous abnormality. Right frontotemporal scalp contusion. The aerated spaces are clear. Moderate atrophy and chronic white matter change. Atherosclerotic intracranial calcification. Bilater al lens replacements. Old right cerebellar infarct. IMPRESSION: No acute intracranial process. Reviewed, dictated and finalized at location K. HALMIC MEDICAL TECHNOLOGIST
[2023-04-03 20:52] VITALS: BP 151/85; PULSE 88; RESP 16; TEMP 36.2; O2SAT 93
--- NOTE | 2023-04-03 22:30 | ED.FALL ---
HPI - Fall General Chief Complaint: Fall Stated Complaint: fall, head trauma Time Seen by Provider: 04/03/23 21:43 Source: patient Mode of arrival: wheelchair Limitations: no limitations History of Present Illness HPI Narrative: This is an 83-year-old female that presents to the emergency department after a fall today with head injury. Reports she slipped in the shower. She did not lose consciousness. Reports contusion to the right side of her forehead. She is on a blood thinner which prompted her to be seen. Denies any other focal injuries or area of pain. She has been ambulatory since the incident. Denies visual changes, vomiting, numbness, weakness. Related Data Home Medications Medication Instructions Recorded Confirmed calcium carbonate 600 mg-vitamin cap PO 04/14/19 03/14/23 D3 5 mcg (200 unit) capsule (Calcium 600 + D(3)) calcium polycarbophil 625 mg tablet 1,250 mg PO DAILY 04/14/19 03/14/23 cholecalciferol (vitamin D3) 125 5,000 unit PO DAILY 04/14/19 03/14/23 mcg (5,000 unit) tablet folic acid 400 mcg tablet 0.4 mg PO DAILY 04/14/19 03/14/23 [id number] 8 mg-folic 400 1 tablet PO DAILY 04/14/19 03/14/23 mcg-K 50 mcg-lutein 300 mcg tablet (Centrum Silver Women) omega3-dha 200 mg-epa 300 mg-othr cap PO 04/14/19 03/14/23 om3 100 mg-fish oil 1,000 mg capsule fiber tablet PO 03/14/23 03/14/23 polysaccharide iron complex 150 mg 150 mg PO DAILY 03/14/23 03/14/23 iron capsule (iFerex 150) Allergies Allergy/AdvReac Type Severity Reaction Status Date / Time Sulfa (Sulfonamide Allergy Mild rash Verified 04/03/23 21:45 Antibiotics) Review of Systems Review of Systems: CONSTITUTIONAL: Denies fever EYES: Denies visual changes CARDIOVASCULAR: Denies chest pain GASTROINTESTINAL: Denies abdominal pain, vomiting MUSCULOSKELETAL: Denies back pain, joint pain, or myalgia. NEUROLOGIC: Denies numbness, or weakness. All systems reviewed & are unremarkable except as noted in HPI and below PMFSH Past Medical History Medical History Arthritis BP (high blood pressure) Compensated hypothyroidism RICK (generalized anxiety disorder) Kyphoscoliosis Osteoporosis Rectal prolapse Underweight Vaginal prolapse without uterine prolapse Surgical History Surgical History H/O partial thyroidectomy Social History Social History (Updated 03/14/23 @ 10:07 by Mary Cheema) Social History: , lives with her spouse Smoking status: Never smoker Second hand tobacco smoke exposure: No Alcohol intake: current Drinks per week: 1 Substance use: never Substance use type: does not use Lack of Transportation: No Lack of Food: Never True Current Housing: I Have Housing Concerned About Future Housing: No Difficulty Paying Gas/Electric Bills: No Difficulty Paying for Meds: No Currently Unemployed: YES Education: Don't Know Difficulty w/ Childcare or Family Care: No Living arrangements: assisted living Additional living arrangements comments: [facility] Occupation/Education: retired Gender identity (if verbalized by the patient): Female Sexual Orientation (if Verbalized by the Patient): Straight or Heterosexual Spiritual care concerns: No Agree to blood products: Yes Exam Narrative: GENERAL: Elderly, well-nourished, and in no acute distress. HEAD: Normocephalic, atraumatic. EYES: PERRLA and EOMI. ENT: Nares clear, no rhinorrhea or epistaxis. Mucous membranes moist. Oropharynx without tonsillar hypertrophy exudate or other lesions. Bilateral TMs pearly petty non-bulging NECK: Supple. No adenopathy or masses. CHEST: Clear to auscultation. No respiratory distress. No wheezes rales or rhonchi HEART: Regular rate and rhythm. No murmur heard. Normal peripheral pulses. EXTREMITIES: Normal range of motion. No edema or obvious deformit
[2023-04-03 22:34] VITALS: BP 148/99; PULSE 67; RESP 18; O2SAT 95
== END 2023-04-03 22:58 ==
PROVIDERS: Emergency Provider Physician Assistant
DX: S00.83XA Contusion of other part of head, initial encounter (principal); I10 Essential (primary) hypertension; E89.0 Postprocedural hypothyroidism; M81.0 Age-related osteoporosis without current pathological fracture; R63.6 Underweight; Z68.1 Body mass index [BMI] 19.9 or less, adult; Y93.E1 Activity, personal bathing and showering; W18.2XXA Fall in (into) shower or empty bathtub, initial encounter
CPT/HCPCS: 70450; 72125; 99284

== ENCOUNTER 2023-04-09 15:13 | Outpatient (CLI) | payer MEDICARE, SELFPAY ==
--- NOTE | ~2023-04-09 | XR_ITS ---
EXAM: XR abdomen obstructive series DATE: 04/09/2023 15:50 HISTORY: R14.0 - Abdominal distension (gaseous) . COMPARISON: None available. FINDINGS: Senescent changes in the lungs. Likely moderate hiatal hernia. Normal bowel gas pattern. N o organomegaly. No lytic Decreased mineralization. Severe lumbar scoliosis. Bilateral hip osteoarthri tis. Partially visualized shoulder arthroplasty hardware. IMPRESSION: No radiographic evidence of obstruction or ileus. Reviewed, dictated and finalized at location K. SYSTEMS ENGINEER
[2023-04-09 16:07] LABS: Hematocrit 51.3 % (37.0-47.0); Hemoglobin 16.1 g/dL (12.0-15.0)
[2023-04-09 16:16] LABS: Blood Urea Nitrogen 15 mg/dL (7-17); Calcium 9.8 mg/dL (8.4-10.2); Carbon Dioxide > 40 mmol/L (22-30); Chloride 89 mmol/L (98-107); Estimated Glomerular Filt Rate > 60; Glucose 98 mg/dL (65-110); Potassium 4.2 mmol/L (3.4-5.0); Sodium 135 mmol/L (137-145)
[2023-04-09 16:45] LABS: Thyroid Stimulating Hormone 0.802 uIU/mL (0.465-4.680)
[2023-04-09 16:53] LABS: Free T4 Free Thyroxine 1.86 ng/mL (0.78-2.19)
[2023-04-09 17:10] LABS: Vitamin B12 > 1000.0 pg/mL (239-931)
== END 2023-04-09 15:14 | disposition home or self-care (01) ==
PROVIDERS: PCP Family Medicine; Visit Provider Family Medicine
DX: E03.9 Hypothyroidism, unspecified (principal); E87.1 Hypo-osmolality and hyponatremia; E53.8 Deficiency of other specified B group vitamins; D64.9 Anemia, unspecified; R14.0 Abdominal distension (gaseous)
CPT/HCPCS: 36415; 74019; 80048; 82607; 84439; 84443; 85014; 85018

== ENCOUNTER 2023-04-10 15:59 | Emergency (ER) | payer MEDICARE, SELFPAY ==
[2023-04-10] VITALS (14 sets, daily range): BP systolic 153–177; BP diastolic 91–100; PULSE 72–97; RESP 15–37; TEMP 36.8; O2SAT 85–94
--- NOTE | ~2023-04-10 | XR_ITS ---
XR chest 1V portable 04/10/2023 16:18 Indication: Weakness Procedure: AP portable chest Comparison: 02/23/2023 Findings: Heart size normal. Scoliosis. Right basilar atelectasis. There are bilateral shoulder arthr oplasties. No focal pneumonia, edema or effusion. No pneumothorax. Impression: 1: Right basilar atelectasis. Reviewed, dictated and finalized at location B. NIC CHEMISTRY TEACHER Impression: 1: Right basilar atelectasis.
--- NOTE | 2023-04-10 16:05 | ECG_ITS ---
Measurements Intervals [place] Rate: 86 P: 56 [place]: 155 QRS: -72 QRSD: 102 T: 63 QT: 364 QTc: 438 Interpretive Statements SINUS RHYTHM ATRIAL AND VENTRICULAR PREMATURE COMPLEXES LEFT ANTERIOR FASCICULAR BLOCK PEAKED T WAVES- CONSIDER HYPERKALEMIA BASELINE ARTIFACT- I, III, AVR, AVL, AVF ABNORMAL ECG COMPARED TO ECG 02/23/2023 20:45:46 LEFT ANTERIOR FASCICULAR BLOCK NOW PRESENT Electronically Signed On 04-10-2023 16:26:19 POLE INSPECTOR by Uziel Holden D.O.
[2023-04-10 16:24] LABS: Hematocrit 49.7 % (37.0-47.0); Hemoglobin 15.6 g/dL (12.0-15.0); Mean Corpuscular HGB Conc 31.4 g/dl (32-36); Mean Corpuscular Hemoglobin 29.4 pg (26-34); Mean Corpuscular Volume 93.6 fl (80-100); Mean Platelet Volume 10.5 fl (7.4-10.4); Platelet Count Result 369 k/mm3 (150-375); Red Blood Count 5.31 M/mm3 (4.2-5.4); Red Cell Distribution Width 15.2 % (11.5-14.5); White Blood Count 17.2 K/mm3 (4.5-10.0)
[2023-04-10 16:42] LABS: Alanine Aminotransferase 21 U/L (6-35); Albumin Level 3.6 g/dL (3.5-5.1); Alkaline Phosphatase 90 U/L (38-126); Aspartate Amino Transferase 38 U/L (14-36); Bilirubin,Total 0.6 mg/dL (0.2-1.3); Blood Urea Nitrogen 16 mg/dL (7-17); Calcium 9.1 mg/dL (8.4-10.2); Carbon Dioxide > 40 mmol/L (22-30); Chloride 91 mmol/L (98-107); Estimated CRCL calculation 43 ml/min; Estimated Glomerular Filt Rate > 60; Glucose 77 mg/dL (65-110); Potassium 4.7 mmol/L (3.4-5.0); Sodium 134 mmol/L (137-145)
[2023-04-10 17:01] LABS: Atypical Lymphocytes Present; Lymphocytes Absolute Manual 3.44 K/mm3 (1.1-4.5); Monocytes Absolute Manual 0.68 K/mm3 (0.1-0.90); Monocytes Percent Manual 4 % (3-9); Neutrophils Percent Manual 76 % (46-73); Platelet Estimate Adequate (Adequate); Schistocytes None Seen (NORMAL); Total Cells Counted 100
[2023-04-10 17:02] LABS: Anisocytosis 1+ (NORMAL); Hypochromasia 1+ (NORMAL)
--- NOTE | 2023-04-10 17:53 | ED.WEAKNESS ---
HPI - Weakness General Chief complaint: Weakness Stated complaint: weakness Time Seen by Provider: 04/10/23 17:09 History of Present Illness HPI Narrative: 83-year-old female with a history of hyponatremia, hypertension, polycythemia vera, atrial flutter, kyphoscoliosis reports for evaluation for generalized fatigue and weakness for the past 2 weeks. Patient presents with her son who assists with history. The patient states that she has been feeling unwell for the past couple weeks hematuria PCP yesterday. For the patient on PCP told her that she believes that she is constipated prescribed 2 laxatives, however the patient has not taken them yet. She reports to ED today because she told the nurses at [facility] where she resides that she was feeling well and wanted to be evaluated at the ED. the patient denies fever, chest pain or shortness of breath, abdominal pain, nausea, vomiting, dysuria or hematuria, rashes. She states she had a bowel movement earlier today that was normal with a small amount of diarrhea. she denies cough, congestion or sore throat. She does have a bruise to her right catholic and states this is from a prior fall a week and half ago where she reported to the ED and had negative CT scans. She denies vision changes or focal numbness or weakness. Of note, patient's oxygen found to be ranging between 87-90%. patient states she believes her oxygen normally ranges around 90 and states her PCP told her that if it just over low 90s any need to be started on oxygen. They leave her declining oxygen saturation to be secondary to her poor chest expansion due to scoliosis. She denies history of smoking, COPD or asthma. Related Data Home Medications Medication Instructions Recorded Confirmed calcium carbonate 600 mg-vitamin cap PO 04/14/19 04/09/23 D3 5 mcg (200 unit) capsule (Calcium 600 + D(3)) calcium polycarbophil 625 mg tablet 1,250 mg PO DAILY 04/14/19 04/09/23 cholecalciferol (vitamin D3) 125 5,000 unit PO DAILY 04/14/19 04/09/23 mcg (5,000 unit) tablet folic acid 400 mcg tablet 0.4 mg PO DAILY 04/14/19 04/09/23 blnlpbsv-guhw-[id number] 8 mg-folic 400 1 tablet PO DAILY 04/14/19 04/09/23 mcg-K 50 mcg-lutein 300 mcg tablet (Centrum Silver Women) omega3-dha 200 mg-epa 300 mg-othr cap PO 04/14/19 04/09/23 om3 100 mg-fish oil 1,000 mg capsule fiber tablet PO 03/14/23 04/09/23 polysaccharide iron complex 150 mg 150 mg PO DAILY 03/14/23 04/09/23 iron capsule (iFerex 150) Allergies Allergy/AdvReac Type Severity Reaction Status Date / Time Sulfa (Sulfonamide Allergy Mild rash Verified 04/09/23 13:53 Antibiotics) Review of Systems Review of Systems: CONSTITUTIONAL: Denies fever, chills, or sweats. EYES: Denies visual changes, redness, or discharge. ENT: Denies rhinorrhea, congestion, sore throat, or otalgia. CARDIOVASCULAR: Denies chest pain, palpitations, or edema. RESPIRATORY: Denies cough or dyspnea. GASTROINTESTINAL: Denies abdominal pain, nausea, vomiting, or diarrhea. GENITOURINARY: Denies dysuria or hematuria. SKIN: Denies rash or itching. MUSCULOSKELETAL: Denies back pain, joint pain, or myalgia. NEUROLOGIC: Denies headache, numbness, or weakness. PSYCHIATRIC: Denies anxiety or depression. [facility] Past Medical History Medical History Arthritis BP (high blood pressure) Compensated hypothyroidism RICK (generalized anxiety disorder) Kyphoscoliosis Osteoporosis Rectal prolapse Underweight Vaginal prolapse without uterine prolapse Surgical History Surgical History H/O partial thyroidectomy Social History Social History Social History: , lives with her spouse Smoking status: Never smoker Second hand tobacco smoke exposure: No Alcohol intake: current Drinks per week: 1 Substance u
[2023-04-10 17:54] LABS: Appearance Urine Cloudy (Clear); Bacteria Urine 4+ /hpf; Bilirubin Urine Negative (Negative); Blood Urine 3+ (Negative); Color Urine Yellow (Yellow); Glucose Urine UA Negative (Negative); Ketones Urine Negative (Negative); Leukocyte Esterase Ur 2+ LEU/UL (Negative); Nitrate Urine Positive (Negative); Non Pathogenic Casts 0-2; Protein Urine 1+ mg/dL (Negative); RBC Urine >100 /hpf (0-2); Specific Grav Ur 1.018 (1.001-1.035); Squamous Epithelial Cell Urine None seen /hpf (Few); Urobilinogen Urine 0.2 mg/dL (<2.0); WBC Urine 51-100 /hpf
[2023-04-10 18:00] LABS: Add Urine Microscopic? YES
[2023-04-10] MEDS: SODIUM CHLORIDE 0.9% IV 1,000 ML 999 ML IV CONT (18:04)
[2023-04-10 18:26] LABS: Troponin I < 0.012 ng/mL (0.000-0.034)
[2023-04-10 18:53] LABS: Influenza A QL RT-PCR Negative (Negative); Influenza B QL RT-PCR Negative (Negative); RSV RNA, RT-PCR Negative (Negative); SARS-CoV-2 RNA PCR Negative (Negative)
== END 2023-04-10 20:11 ==
PROVIDERS: Emergency Medicine; Emergency Provider Physician Assistant; PCP Family Medicine
DX: R09.02 Hypoxemia (principal); N30.01 Acute cystitis with hematuria; R53.1 Weakness; I10 Essential (primary) hypertension; Z79.899 Other long term (current) drug therapy; Z20.822 Contact with and (suspected) exposure to COVID-19
CPT/HCPCS: 36415; 71045; 80053; 81001; 84484; 85025; 87077; 87086; 87186; 87637; 93005; 96365; 99284; J0696; J7030

== ENCOUNTER 2023-04-16 09:13 | Inpatient (IN) | payer MEDICARE, SELFPAY ==
[2023-04-16] VITALS (49 sets, daily range): BP systolic 98–154; BP diastolic 68–86; PULSE 72–106; RESP 16–34; TEMP 36.2–36.5; O2SAT 93–99; BMI 16.9
--- NOTE | ~2023-04-16 | CT_ITS ---
CT head without contrast Indication: Altered mental status COMPARISON: 04/03/2023 Technique: Serial scans were obtained through the brain without the administration of contrast. Dose reduction technique was used on this scan by utilizing automated exposure control and iterative recon struction technique. The dose-length product (DLP) was 1362.00 mGy-cm. Findings: There is no evidence of intracranial hemorrhage, mass lesion, or acute infarct. The ventri cles and subarachnoid spaces are dilated, consistent with mild to moderate atrophy. Low attenuation regions are seen within the periventricular white matter bilaterally, likely representing changes fro m chronic microvascular ischemic disease. There is no evidence of edema, mass effect or midline shif t. The visualized paranasal sinuses and mastoid air cells are clear. Impression: No intracranial hemorrhage, mass, or acute infarct. Atrophy and chronic white matter changes, as above. Reviewed, dictated and finalized at location . NTIFIC INFORMATICS LEADER Impression: No intracranial hemorrhage, mass, or acute infarct. Atrophy and chronic white matter changes, as above.
--- NOTE | ~2023-04-16 | XR_ITS ---
EXAMINATION: XR chest 1V portable INDICATION: Shortness of breath TECHNIQUE: Portable AP chest at 0952 hours COMPARISON: 04/16/2023 FINDINGS: There are airspace opacities of the lung bases, right greater than left. There are small pl eural effusions. Cardiomegaly is noted. There is a large hiatal hernia. No pneumothorax is identified . There are changes of bilateral total shoulder arthroplasty. There is cranial subluxation of the lef t shoulder arthroplasty. IMPRESSION: 1. Bibasilar airspace opacities, right greater than left, consistent with atelectasis versus pneumoni a. 2. Small right pleural effusion. 3. Large hiatal hernia. Reviewed, dictated and finalized at location F. ON GINNER HELPER IMPRESSION: 1. Bibasilar airspace opacities, right greater than left, consistent with atele ctasis versus pneumonia. 2. Small right pleural effusion. 3. Large hiatal hernia.
--- NOTE | ~2023-04-16 | XR_ITS ---
EXAMINATION: XR barium swallow modified DATE: 04/22/2023 10:04 INDICATION: Aspiration. TECHNIQUE: The patient was given barium-containing material of multiple consistencies to swallow by t he speech pathologist while I performed fluoroscopy. Fluoroscopy exposure time was 0.8 minutes. The n umber of fluoroscopy images saved to the PACS was 1. Dose-area product was 0.855 Gy-cm^2. FINDINGS: The oral stage, pharyngeal stage, and cervical/esophageal stage of the swallow are normal. IMPRESSION: 1. Normal modified barium swallow. 2. Please refer to the speech therapy report for recommendations. Reviewed, dictated and finalized at location A. ERENCE SERVICES DIRECTOR
--- NOTE | ~2023-04-16 | XR_ITS ---
XR chest 1V portable 04/16/2023 09:43 Indication: Shortness of breath Procedure: AP portable chest Comparison: 04/10/2023 Findings: Cardiomegaly. Small pleural effusions, right greater than left. Bibasilar airspace disease is present. No pneumothorax. There are bilateral shoulder arthroplasties. Severe scoliosis. Impression: 1: Bibasilar airspace disease may represent pneumonia and/or atelectasis. 2: Small pleural effusions, right greater than left. 3: Cardiomegaly. Reviewed, dictated and finalized at location [facility] Impression: 1: Bibasilar airspace disease may represent pneumonia and/or atelectasis. 2: Small pleural effusions, right greater than left. 3: Cardiomegaly.
--- NOTE | 2023-04-16 09:25 | ECG_ITS ---
Measurements Intervals [place] Rate: 79 P: 38 [place]: 136 QRS: -72 QRSD: 105 T: 29 QT: 374 QTc: 430 Interpretive Statements SINUS RHYTHM WITH FREQUENT VENTRICULAR PREMATURE COMPLEXES INCOMPLETE RIGHT BUNDLE BRANCH BLOCK [90+ ms QRS DURATION, TERMINAL R IN V1/V2, 40+ ms S IN I/aVL/V4/V5/V6] LEFT ANTERIOR FASCICULAR BLOCK [QRS AXIS <= -45, QR IN I, RS IN II] POOR R-WAVE PROGRESSION COMPARED TO ECG 04/10/2023 16:08:45 INCOMPLETE RIGHT BUNDLE-BRANCH BLOCK NOW PRESENT THE PEAKING OF THE T-WAVES WAVES IS NOT PRONOUNCED Electronically Signed On 04-16-2023 13:33:31 TUB PULLER by Cecilia Francisco M.D.
--- NOTE | 2023-04-16 09:59 | ED.SOB ---
HPI - SOB/Dyspnea General Chief Complaint: Shortness of Breath/Dyspnea Stated Complaint: SOB x days per [facility] staff History of Present Illness HPI Narrative: 83-year-old female presenting to the emergency department for evaluation of shortness of breath. Patient does have history of COPD. family states that the patient had a recent urinary tract infection and recent diagnosis of pneumonia and it was only in the last few weeks that she was placed oxygen by nasal cannula. This morning the patient was complaining shortness of breath at the nursing facility. When EMS arrived patient states she no longer had shortness of breath. Upon arrival to the emergency department patient is saturating between 96 and 99% her normal 3 L and patient denies any complaints at this time. Patient states she does not ambulate and typically uses a wheelchair. family states that typically the patient is able to be more physically active and that this is a change from her baseline. Related Data Home Medications Medication Instructions Recorded Confirmed calcium carbonate 600 mg-vitamin cap PO 04/14/19 04/09/23 D3 5 mcg (200 unit) capsule (Calcium 600 + D(3)) calcium polycarbophil 625 mg tablet 1,250 mg PO DAILY 04/14/19 04/09/23 cholecalciferol (vitamin D3) 125 5,000 unit PO DAILY 04/14/19 04/09/23 mcg (5,000 unit) tablet folic acid 400 mcg tablet 0.4 mg PO DAILY 04/14/19 04/09/23 [id number]-[id number] 8 mg-folic 400 1 tablet PO DAILY 04/14/19 04/09/23 mcg-K 50 mcg-lutein 300 mcg tablet (Centrum Silver Women) omega3-dha 200 mg-epa 300 mg-othr cap PO 04/14/19 04/09/23 om3 100 mg-fish oil 1,000 mg capsule fiber tablet PO 03/14/23 04/09/23 polysaccharide iron complex 150 mg 150 mg PO DAILY 03/14/23 04/09/23 iron capsule (iFerex 150) Allergies Allergy/AdvReac Type Severity Reaction Status Date / Time Sulfa (Sulfonamide Allergy Mild rash Verified 04/09/23 13:53 Antibiotics) Review of Systems Review of Systems: All systems reviewed & are unremarkable except as noted in HPI and below PMFSH Past Medical History Medical History (Updated 04/16/23 @ 15:33 by Maude Perea PA-C) Arthritis B12 deficiency Chronic anticoagulation Chronic respiratory failure with hypoxia, on home oxygen therapy Generalized anxiety disorder Hypertension Hypothyroidism Kyphoscoliosis Mitral regurgitation and aortic stenosis Osteoporosis Paroxysmal atrial fibrillation Paroxysmal atrial flutter Polycythemia Rectal prolapse Vaginal prolapse without uterine prolapse Surgical History Surgical History (Updated 04/16/23 @ 15:06 by Maude Perea PA-C) History of cataract extraction with lens replacement History of colonoscopy (07/2000) Left-sided diverticulosis, collagenous/microscopic colitis, internal hemorrhoidal tissue. History of esophagogastroduodenoscopy (06/2000) Esophageal stricture and hiatal hernia. History of inguinal hernia repair History of partial thyroidectomy History of replacement of both shoulder joints Family History Family History (Updated 04/16/23 @ 15:16 by Maude Perea PA-C) Other Family history non-contributory Social History Social History (Updated 04/16/23 @ 15:19 by Maude Perea PA-C) Social History: Surrogate medical decision maker: Ayan Wright, son. Code status: Full code. Smoking status: Never smoker Second hand tobacco smoke exposure: No Alcohol intake: current Drinks per week: 21 Alcohol use details: History of alcohol abuse. Substance use: never Substance use type: does not use Lack of Transportation: No Lack of Food: Never True Current Housing: I Have Housing Concerned About Future Housing: No Difficulty Paying Gas/Electric Bills: No Difficulty Paying for Meds: No Currently Unemployed: No Education: Bachelor's Degree Difficulty w/ Childcare or Family Care: No Living arrangements: assisted living Additional living arrangements com
[2023-04-16 10:22] LABS: Influenza A QL RT-PCR Negative (Negative); Influenza B QL RT-PCR Negative (Negative); RSV RNA, RT-PCR Negative (Negative); SARS-CoV-2 RNA PCR Negative (Negative)
[2023-04-16 11:14] LABS: Basophils Absolute Auto 0.1 K/mm3 (0.0-0.1); Basophils Percent Auto 0.8 % (0.2-1.2); Eosinophils Absolute Auto 0.1 K/mm3 (0-0.3); Eosinophils Percent Auto 0.6 % (0-4.4); Hematocrit 55.2 % (37.0-47.0); Hemoglobin 16.3 g/dL (12.0-15.0); Immature Granulocyte Absolute 0.99 K/mm3 (0.00-0.031); Immature Granulocyte Percent A 7.6 % (0-0.5); Lymphocytes Absolute Auto 1.18 K/mm3 (0.9-3.2); Lymphocytes Percent Auto 9.1 % (18.3-44.2); Mean Corpuscular HGB Conc 29.5 g/dl (32-36); Mean Corpuscular Hemoglobin 28.5 pg (26-34); Mean Corpuscular Volume 96.7 fl (80-100); Mean Platelet Volume 10.8 fl (7.4-10.4); Monocytes Percent Auto 7.4 % (2.6-8.5); Neutrophils Absolute Auto 9.7 K/mm3 (1.3-6.7); Neutrophils Percent Auto 74.5 % (45.5-73.1); Platelet Count Result 283 k/mm3 (150-375); Red Blood Count 5.71 M/mm3 (4.2-5.4); Red Cell Distribution Width 15.3 % (11.5-14.5)
[2023-04-16 11:47] LABS: Blood Urea Nitrogen 14 mg/dL (7-17); Calcium 9.6 mg/dL (8.4-10.2); Carbon Dioxide > 40 mmol/L (22-30); Chloride 83 mmol/L (98-107); Estimated Glomerular Filt Rate > 60; Glucose 89 mg/dL (65-110); Potassium 3.9 mmol/L (3.4-5.0); Sodium 135 mmol/L (137-145)
--- NOTE | 2023-04-16 11:52 | PC.NURSE ---
Pt more lethargic than on arrival. Still responds to verbal stimuli. Son at bedside and states she drinks alcohol daily and they cleaned out her apartment 2 days ago so she could not drink anymore.
--- NOTE | 2023-04-16 12:01 | PC.NURSE ---
Per Jigar CAUSEY at [facility] assisted living, pt has PMH of alcohol abuse and some containers were removed from her living area a day ago. Pt is currently fatigued, family at bedside states she is not at her baseline. EDP Dr Vanegas made aware and added ETOH level.
[2023-04-16 12:45] LABS: Ethanol < 10 mg/dL (<10)
[2023-04-16 13:07] LABS: Appearance Urine Clear (Clear); Bacteria Urine None Seen /hpf; Bilirubin Urine Negative (Negative); Blood Urine Negative (Negative); Color Urine Yellow (Yellow); Glucose Urine UA Negative (Negative); Ketones Urine Trace mg/dL (Negative); Leukocyte Esterase Ur Negative LEU/UL (Negative); Need Manual Microscopic Reviewed; Nitrate Urine Negative (Negative); Protein Urine Trace mg/dL (Negative); RBC Urine 21-50 /hpf (0-2); Specific Grav Ur 1.018 (1.001-1.035); Squamous Epithelial Cell Urine None seen /hpf (Few); Urobilinogen Urine 0.2 mg/dL (<2.0); WBC Urine 0-5 /hpf
[2023-04-16 13:08] LABS: Add Urine Microscopic? YES
--- NOTE | 2023-04-16 13:20 | PC.NURSE ---
Sleeping on stretcher. Pt arousable to verbal stimuli.
[2023-04-16] MEDS: SODIUM CHLORIDE 0.9% IV 500 ML 999 ML IV CONT (14:02)
[2023-04-16 14:29] LABS: Base Excess ABG 15.1 mEq/l (+/-2.0); Carboxyhemoglobin 1.8 % THb (0-2.0); Fractional Inspired Oxygen 34 %; HCO3 ABG 45.3 mEq/l (22.0-26.0); Methemoglobin ABG 0.4 %THb (0-1.5); Oxygen Content ABG 18.9 %vol (16.0-22.0); Oxygen Saturation ABG 89.4 % (95.0-100.0); Oxyhemoglobin 88.5 % THb (90.0-100.0); PO2 FiO2 Ratio Arterial Blood 1.82 %; Reduced Hemoglobin 9.3 %THb (0-5.0); Total Hemoglobin 15.2 g/dL (12.0-18.0); pH ABG 7.356 (7.350-7.450)
[2023-04-16 14:30] LABS: Device NASAL CANNULA; Modified Allen's Test Pass; PCO2 ABG 82.8 mmHg (35.0-45.0); Site Drawn RIGHT RADIAL
--- NOTE | 2023-04-16 14:59 | PM.IMHP ---
H&P: HPI History of Present Illness Date/Time: 04/16/23 14:00 Chief Complaint: Shortness of breath. Narrative: This is an 83-year-old female with severe kyphoscoliosis causing chronic respiratory failure with hypoxia on oxygen, hypertension, hypothyroidism, paroxysmal atrial fibrillation/which flutter on chronic anticoagulation polycythemia, and anxiety who presented to the emergency department via EMS from [facility] for evaluation of shortness of breath. She is able to provide some history however her son provides additional information as she is a bit lethargic. She has a history of falls and has been seen in the emergency department several times for the same over the past month and half for so. Typically she ambulates with a walker but has been in a wheelchair more often due to the falls. She reports having poor balance which causes the falls. Her last visit to the ER was on 04/10/2023 at which time she presented for evaluation of fatigue and weakness for couple of weeks. During that visit her SpO2 seemed to however in the high 80s to low 90s and she reported that she had recently been started on oxygen at 3 L of the cannula though she was not always using it however has been compliant since that time. She was sent home with a prescription for Keflex for urinary tract infection and her urine culture did grow out fluoroquinolone resistant E coli. She is compliant with antibiotics she goes on to say she really had no symptoms of the UTI anyway. Family members report that she continues to be more fatigued and less interactive than usual. This morning son received a phone call that she appeared increasingly short of breath and that she was being brought to the ER. She was afebrile on arrival with stable blood pressures. SpO2 has been in the high 90s on her prescribed 3 L. Labs were significant for WBC count 13.0, hemoglobin 16.3, sodium 135, chloride 83, carbon dioxide greater than 40. She tested negative for influenza, RSV, and COVID. Brain CT was without acute findings. Chest x-ray was read as showing bibasilar airspace disease which could be pneumonia or atelectasis, small pleural effusions, and cardiomegaly. ABG showed a pH of 7.356, pCO2 82.8, PO2 62.0. She has been started on BiPAP and she is being admitted in this setting for further treatment. At the time my evaluation she is alert but a bit confused. She does not necessarily feel any more short of breath than usual. She complains of pain in the right elbow with movement. She denies vertigo, visual changes, fever, chills, sweats, chest pain, pleuritic pain, abdominal pain, nausea, vomiting, diarrhea, and dysuria. Review of Systems Review of Systems: Twelve systems were reviewed. No fever chills, or sweats. Nonproductive cough. No chest or pleuritic. She denies syncope and near syncope. No nausea, vomiting, or diarrhea. In fact she feels a bit constipated. Denies dysuria. Except as documented, all other systems were reviewed and are negative. [facility] Past Medical History Medical History (Updated 04/16/23 @ 15:33 by Maude Perea PA-C) Arthritis B12 deficiency Chronic anticoagulation Chronic respiratory failure with hypoxia, on home oxygen therapy Generalized anxiety disorder Hypertension Hypothyroidism Kyphoscoliosis Mitral regurgitation and aortic stenosis Osteoporosis Paroxysmal atrial fibrillation Paroxysmal atrial flutter Polycythemia Rectal prolapse Vaginal prolapse without uterine prolapse Surgical History Surgical History (Updated 04/16/23 @ 15:06 by Maude Perea PA-C) History of cataract extraction with lens replacement History of colonoscopy (07/2000) Left-sided diverticulosis, collagenous/microscopic colitis, internal hemorrhoidal tissue. History of esophagogastroduodenoscopy (06/2000) Esophageal stricture and hiatal hernia. History of inguinal hernia repair History of partial thyroidectomy History of replacement of both shoulder joints
[2023-04-16] MEDS: AZITHROMYCIN 500 MG/NS 250 ML 500 MG/250 ML BAG 250 MG IVPB (15:36)
--- NOTE | 2023-04-16 16:39 | ADMGEN ---
This patient, Elsa Wright, was admitted to IMU Room 232-01 at 1618. Patient/family oriented to hospital policies and general routines including ID bracelet, bed and alarms, visiting hours, pain management, procedures, bathroom and other care routines, personal items, smoking policy, room service/diet, and visiting hours. Information on how to activate the Rapid Response Team has been discussed. Patient/Family are encouraged to report perceived risks to care and to ask questions if they do not understand what they are told or what they should do.
[2023-04-16 16:49] LABS: Alveolar/Arterial O2 Gradient 26.1 mmHg; Base Excess ABG 14.1 mEq/l (+/-2.0); Carboxyhemoglobin 0.7 % THb (0-2.0); Fractional Inspired Oxygen 24 %; HCO3 ABG 42.5 mEq/l (22.0-26.0); Methemoglobin ABG 0.3 %THb (0-1.5); Oxygen Saturation ABG 91.5 % (95.0-100.0); Oxyhemoglobin 91.2 % THb (90.0-100.0); PO2 ABG 63.2 mmHg (80.0-100.0); PO2 FiO2 Ratio Arterial Blood 2.63 %; Reduced Hemoglobin 7.8 %THb (0-5.0); Total Hemoglobin 15.6 g/dL (12.0-18.0); pH ABG 7.409 (7.350-7.450)
[2023-04-16 16:51] LABS: Device BIPAP; Modified Allen's Test Pass; PCO2 ABG 68.8 mmHg (35.0-45.0); Site Drawn RIGHT RADIAL
[2023-04-16 16:52] LABS: Expiratory Pressure 6 cmH2O; Inspiratory Pressure 18 cmH2O
[2023-04-16 22:28] LABS: Alanine Aminotransferase 20 U/L (6-35); Albumin Level 3.5 g/dL (3.5-5.1); Alkaline Phosphatase 113 U/L (38-126); Aspartate Amino Transferase 34 U/L (14-36); Bilirubin,Total 0.9 mg/dL (0.2-1.3); Blood Urea Nitrogen 15 mg/dL (7-17); Calcium 9.4 mg/dL (8.4-10.2); Carbon Dioxide > 40 mmol/L (22-30); Chloride 84 mmol/L (98-107); Estimated Glomerular Filt Rate > 60; Glucose 67 mg/dL (65-110); Magnesium 1.5 mg/dL (1.6-2.3); Potassium 4.3 mmol/L (3.4-5.0); Sodium 136 mmol/L (137-145)
[2023-04-16] MEDS: carvediloL 6.25 MG TABLET BY MOUTH (22:30)
[2023-04-17] VITALS (29 sets, daily range): BP systolic 101–133; BP diastolic 48–80; PULSE 80–103; RESP 18–23; TEMP 35.8–36.6; O2SAT 93–100; BMI 17.6
[2023-04-17] MEDS: IPRATROPIUM BR 0.02% INH SOLN 0.5 MG/2.5 ML VIAL INHALATION ×4 (03:20→21:18)
[2023-04-17] MEDS: ALBUTEROL SULFATE NEB 2.5 MG/3 ML INH INHALATION ×4 (03:20→21:18)
[2023-04-17 04:35] LABS: Hematocrit 51.4 % (37.0-47.0); Hemoglobin 15.7 g/dL (12.0-15.0); Mean Corpuscular HGB Conc 30.5 g/dl (32-36); Mean Corpuscular Volume 94.8 fl (80-100); Mean Platelet Volume 10.4 fl (7.4-10.4); Platelet Count Result 321 k/mm3 (150-375); Red Blood Count 5.42 M/mm3 (4.2-5.4)
[2023-04-17 05:07] LABS: Blood Urea Nitrogen 15 mg/dL (7-17); Calcium 9.2 mg/dL (8.4-10.2); Carbon Dioxide > 40 mmol/L (22-30); Chloride 83 mmol/L (98-107); Estimated Glomerular Filt Rate > 60; Glucose 55 mg/dL (65-110); Potassium 3.9 mmol/L (3.4-5.0); Sodium 135 mmol/L (137-145)
[2023-04-17] MEDS: DEXTROSE 50% 25 GM/50 ML SYRINGE IV PUSH (05:25)
[2023-04-17 05:45] LABS: Glucose Point of Care 125 mg/dl (65-105)
[2023-04-17] MEDS: LEVOTHYROXINE SODIUM 100 MCG TABLET PO (07:23)
[2023-04-17 07:49] LABS: Glucose Point of Care 100 mg/dl (65-105)
[2023-04-17] MEDS: carvediloL 6.25 MG TABLET BY MOUTH ×2 (08:27→21:54)
[2023-04-17] MEDS: THERAPEUTIC MULTIVITAMINS/MINERALS TAB (*BKC) 2 TABLET PO (08:27)
[2023-04-17] MEDS: CHOLECALCIFEROL 1,000 UNITS TABLET 1000 UNITS BY MOUTH (08:27)
[2023-04-17] MEDS: SENNOSIDES 8.6 MG TABLET PO (08:28)
[2023-04-17] MEDS: POTASSIUM CHLORIDE 10 MEQ ER TABLET PO (08:29)
[2023-04-17] MEDS: hydroCHLOROthiazide 25 MG TABLET PO (08:29)
[2023-04-17] MEDS: POLYSACCHARIDE IRON COMPLEX 150 MG CAPSULE PO (08:29)
[2023-04-17] MEDS: ESCITALOPRAM OXALATE 10 MG TABLET BY MOUTH (08:29)
[2023-04-17 12:01] LABS: Glucose Point of Care 259 mg/dl (65-105)
--- NOTE | 2023-04-17 12:05 | PCSTNOTE ---
Please refer to the Bedside Swallow Evaluation in the EMR. Please note, silent aspiration cannot be ruled out at bedside.
--- NOTE | 2023-04-17 14:36 | PC.NURSE ---
On 04/17/23, the student, Bree RUIZ, provided care and completed [facility] documentation on this patient. I have reviewed the student's documentation and agree with the findings.
[2023-04-17] MEDS: AZITHROMYCIN 500 MG/NS 250 ML 500 MG/250 ML BAG 250 MG IVPB (15:07)
--- NOTE | 2023-04-17 15:09 | PCCCNOTE ---
On 04/17/23, the student, Sendy Enamorado, provided care and completed [facility] documentation on this patient. I have reviewed the student's documentation and agree with the findings.
--- NOTE | 2023-04-17 15:41 | PM.IMPN ---
Progress Note: A&P Assessment and Plan (1) Chronic respiratory failure with hypoxia, on home oxygen therapy: Code(s): J96.11 - Chronic respiratory failure with hypoxia; Z99.81 - Dependence on supplemental oxygen Status: Acute (2) History of fall: Code(s): Z91.81 - History of falling Status: Acute (3) Chronic anticoagulation: Code(s): Z79.01 - long-term (current) use of anticoagulants Status: Acute (4) Paroxysmal atrial fibrillation: Code(s): I48.0 - Paroxysmal atrial fibrillation Status: Acute (5) Hypertension: Code(s): I10 - Essential (primary) hypertension Status: Acute Plan 83-year-old female with severe kyphoscoliosis causing chronic respiratory failure with hypoxia on oxygen, hypertension, hypothyroidism, paroxysmal atrial fibrillation/which flutter on chronic anticoagulation polycythemia, and anxiety who presented to the emergency department via EMS from [facility] for evaluation of shortness of breath.Chest x-ray was read as showing bibasilar airspace disease which could be pneumonia or atelectasis, small pleural effusions, and cardiomegaly. 1. Acute on chronic hypoxic respiratory failure: Secondary to pneumonia Currently on baseline O2 support of 3 L Monitor leukocytosis Continue with azithromycin and ceftriaxone Continue with albuterol, ipratropium Will obtain blood culture Await echocardiogram 2.? UTI: Continue with ceftriaxone No culture was sent, will treat empirically 3. Hypertension: Continue with, hydrochlorothiazide, Coreg 4. PT/OT 5. Dysphagia: Speech therapist has recommended soft diet 6. Code status: full 7. DVT prophylaxis: Lovenox 8. Disposition: Pending improvement Time Spent With Patient Time with patient: 15 - 25 minutes Subjective Date/time seen: 04/17/23 15:41 Interval history: Low blood glucose this morning Review of Systems Review of Systems: Twelve systems were reviewed. No fever chills, or sweats. Nonproductive cough. No chest or pleuritic. She denies syncope and near syncope. No nausea, vomiting, or diarrhea. In fact she feels a bit constipated. Denies dysuria. Except as documented, all other systems were reviewed and are negative. Exam Narrative: General: Thin, frail, chronically ill-appearing elderly female HEENT: Reddish bruise over the right eyelid from my fall last week. Neck: Supple. No midline vertebral tenderness. Chest: Severe kyphoscoliosis. Respiratory: Lung sounds are diminished throughout both bases. Faint wheezing. Cardiovascular: Regular rate and rhythm with S1-S2. Systolic murmurs at the upper sternal border at the apex. Gastrointestinal: Abdomen is soft, flat, nontender, and nondistended with positive bowel sounds. Skin: Warm and dry. Bruise on the right eyelid, skin tear on the right elbow. Scattered bruises on the upper extremities. Extremities: No cyanosis, clubbing, or edema. Radial and pedal pulses intact. No palpable knots or cords. 0 pulses palpable. Neurological: Alert to name, month and day of , and president. Psychiatric: Confused. Cooperative. Objective Data Vital Signs Vital Signs: Vital Signs - 24 hr 04/16/23 15:42 04/16/23 16:20 04/16/23 16:59 Temperature 97.3 F L Pulse Rate 75 86 87 Respiratory Rate 18 23 H 21 H Blood Pressure 154/75 H 127/86 Pulse Oximetry 96 94 97 Oxygen Delivery BiPAP Oxygen Flow Rate Fraction of Inspired Oxygen 04/16/23 18:00 04/16/23 20:57 04/16/23 20:00 Temperature 97.7 F Pulse Rate 79 88 81 Respiratory Rate 30 H Blood Pressure 140/86 Pulse Oximetry 97 Oxygen Delivery Oxygen Flow Rate Fraction of Inspired Oxygen 04/16/23 20:00 04/16/23 23:52 04/17/23 00:00 Temperature 97.1 F L Pulse Rate 88 91 81 Respiratory Rate 30 H 23 H Blood Pressure 145/78 H Pulse Oximetry 94 93 Oxygen Delivery BiPAP Oxygen Flow Rate Fraction of Inspired Oxyg
[2023-04-17 20:38] LABS: Glucose Point of Care 165 mg/dl (65-105)
--- NOTE | 2023-04-17 22:15 | ECHO_ITS ---
Patient Info Name: Elsa Wright Age: 83 years : 1940 Gender: Female Ht: 59 in Wt: 83 lbs BSA: 1.24 m2 HR: 97 bpm BP: 101 / 67 mmHg Heart Rhythm: Tachycardia Technical Quality: Good Exam Date: 04/17/2023 9:55 AM Exam Location: Echo Lab Patient Status: Inpatient Admit Date: 04/16/2023 Staff Ordering Physician: Maude Perea PA-C Emergency Generator Mechanic: Harini Sood RDCS Attending Provider: Luis Daniel Alford MD Referring Physician: Brit TERESA; Exam Type: CA echo doppler color flow Study Info Indications - hypoxia, a fib, htn Complete two-dimensional, color flow and Doppler transthoracic echocardiogram is performed. Summary 1. Complete two-dimensional, color flow and Doppler transthoracic echocardiogram is performed. 2. Left ventricular chamber dimension is normal. 3. Left ventricular systolic function is hyperdynamic, estimated at >70%. 4. There is moderately increased left ventricular wall thickness. 5. The left ventricular diastolic function is grade I diastolic dysfunction. 6. Right ventricular chamber dimension is moderately enlarged. 7. Right ventricular systolic function is normal. 8. Left atrial chamber dimension is severely enlarged. 9. Right atrial chamber dimension is severely enlarged. 10. There is severe aortic valve calcification. 11. There is mild to moderate aortic valve stenosis with a peak velocity of 202 cm/s, mean gradient of 9 mmHg, and aortic valve area of 1.2 cm2. 12. There is moderate aortic valve regurgitation. 13. There is moderate tricuspid valve regurgitation. 14. Estimated pulmonary arterial systolic pressure is 43 mmHg. Left Ventricle Left ventricular chamber dimension is normal. Left ventricular systolic function is hyperdynamic, estimated at >70%. There is moderately increased left ventricular wall thickness. Left ventricular septal wall motion is abnormal with septal motion related to bundle branch block. The left ventricular diastolic function is grade I diastolic dysfunction. Right Ventricle Right ventricular chamber dimension is moderately enlarged. Right ventricular systolic function is normal. Left Atria Left atrial chamber dimension is severely enlarged. Right Atria Right atrial chamber dimension is severely enlarged. Atrial Septum Intact interatrial septum visualized by color flow imaging. Aortic Valve The aortic valve is probable trileaflet. There is mild to moderate aortic valve stenosis with a peak velocity of 202 cm/s, mean gradient of 9 mmHg, and aortic valve area of 1.2 cm2. There is moderate aortic valve regurgitation. There is severe aortic valve calcification. Pulmonic Valve The pulmonic valve is not well visualized. Mitral Valve The mitral valve has thickened leaflets. There is trace mitral valve regurgitation. The mitral valve annulus is severely calcified. Tricuspid Valve The tricuspid valve leaflets are thickened. There is moderate tricuspid valve regurgitation. Estimated pulmonary arterial systolic pressure is 43 mmHg. Pericardium/Pleural There is no pericardial effusion. Inferior Vena Cava Normal inferior vena cava with >50% collapse upon inspiration consistent with normal right atrial pressure, 3 mmHg. Aorta The aortic root size at the sinus of Valsalva is normal. Left Ventricular Outflow Tract Name Value Normal LVOT 2D
[2023-04-18] VITALS (24 sets, daily range): BP systolic 109–154; BP diastolic 65–78; PULSE 77–104; RESP 18–24; TEMP 36.3–36.6; O2SAT 84–98
[2023-04-18] MEDS: IPRATROPIUM BR 0.02% INH SOLN 0.5 MG/2.5 ML VIAL INHALATION ×4 (03:03→17:59)
[2023-04-18] MEDS: ALBUTEROL SULFATE NEB 2.5 MG/3 ML INH INHALATION ×4 (03:06→17:59)
[2023-04-18 04:59] LABS: Basophils Absolute Auto 0.1 K/mm3 (0.0-0.1); Basophils Percent Auto 0.5 % (0.2-1.2); Eosinophils Absolute Auto 0.1 K/mm3 (0-0.3); Eosinophils Percent Auto 0.7 % (0-4.4); Hematocrit 49.8 % (37.0-47.0); Hemoglobin 15.2 g/dL (12.0-15.0); Immature Granulocyte Absolute 0.52 K/mm3 (0.00-0.031); Immature Granulocyte Percent A 3.7 % (0-0.5); Lymphocytes Absolute Auto 1.25 K/mm3 (0.9-3.2); Mean Corpuscular HGB Conc 30.5 g/dl (32-36); Mean Corpuscular Hemoglobin 28.8 pg (26-34); Mean Corpuscular Volume 94.5 fl (80-100); Mean Platelet Volume 10.2 fl (7.4-10.4); Monocytes Absolute Auto 1.1 K/mm3 (0.1-0.6); Monocytes Percent Auto 8.1 % (2.6-8.5); Neutrophils Absolute Auto 10.8 K/mm3 (1.3-6.7); Platelet Count Result 274 k/mm3 (150-375); Red Blood Count 5.27 M/mm3 (4.2-5.4); Red Cell Distribution Width 14.6 % (11.5-14.5); White Blood Count 13.9 K/mm3 (4.5-10.0)
[2023-04-18 05:10] LABS: Potassium 3.8 mmol/L (3.4-5.0)
[2023-04-18 05:17] LABS: Blood Urea Nitrogen 20 mg/dL (7-17); Calcium 8.8 mg/dL (8.4-10.2); Carbon Dioxide > 40 mmol/L (22-30); Chloride 84 mmol/L (98-107); Estimated Glomerular Filt Rate > 60; Glucose 85 mg/dL (65-110); Magnesium 1.5 mg/dL (1.6-2.3); Sodium 134 mmol/L (137-145)
[2023-04-18] MEDS: LEVOTHYROXINE SODIUM 100 MCG TABLET PO (06:23)
[2023-04-18 07:55] LABS: Glucose Point of Care 82 mg/dl (65-105)
[2023-04-18] MEDS: CHOLECALCIFEROL 1,000 UNITS TABLET 1000 UNITS BY MOUTH (08:23)
[2023-04-18] MEDS: ESCITALOPRAM OXALATE 10 MG TABLET BY MOUTH (08:23)
[2023-04-18] MEDS: carvediloL 6.25 MG TABLET BY MOUTH (08:23)
[2023-04-18] MEDS: THERAPEUTIC MULTIVITAMINS/MINERALS TAB (*BKC) 2 TABLET PO (08:23)
[2023-04-18] MEDS: polyethylene glycoL 3350 17 GM POWD.PACK PO (08:24)
[2023-04-18] MEDS: POLYSACCHARIDE IRON COMPLEX 150 MG CAPSULE PO (08:24)
[2023-04-18] MEDS: SENNOSIDES 8.6 MG TABLET PO (08:24)
[2023-04-18] MEDS: hydroCHLOROthiazide 25 MG TABLET PO (08:24)
[2023-04-18] MEDS: POTASSIUM CHLORIDE 10 MEQ ER TABLET PO (08:24)
[2023-04-18] MEDS: CALCITONIN NASAL 200 UNITS/SPRAY 3.7 ML BOTTLE 1 SPRAY NASAL (08:32)
[2023-04-18] MEDS: HYDROCORTISONE 2.5% CREAM 30 GM TUBE 1 APPLIC TOPICAL (08:32)
[2023-04-18 12:25] LABS: Glucose Point of Care 133 mg/dl (65-105)
--- NOTE | 2023-04-18 14:22 | PC.NURSE ---
This patient, Elsa Wright, was transferred to [[facility]2 ] on 04/18/23 at 1422. Personal belongings sent with patient. Report given to [MARIUM Steele @ [phone] ]. Appropriate documentation sent with patient. Son, Alexandre, updated with information regarding pt being moved.
--- NOTE | 2023-04-18 15:29 | ADMGEN ---
This patient, Elsa Wright, was admitted to 3 [facility] Surg Room 323-02 from IMU 232-01 . Patient/family oriented to hospital policies and general routines including ID bracelet, bed and alarms, visiting hours, pain management, procedures, bathroom and other care routines, personal items, smoking policy, room service/diet, and visiting hours. Information on how to activate the Rapid Response Team has been discussed. Patient/Family are encouraged to report perceived risks to care and to ask questions if they do not understand what they are told or what they should do.
--- NOTE | 2023-04-18 16:05 | PM.IMPN ---
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 operator (current) use of anticoagulants Status: Acute (4) Paroxysmal atrial fibrillation: Code(s): I48.0 - Paroxysmal atrial fibrillation Status: Acute (5) Hypertension: Code(s): I10 - Essential (primary) hypertension Status: Acute Plan 83-year-old female with severe kyphoscoliosis causing chronic respiratory failure with hypoxia on oxygen, hypertension, hypothyroidism, paroxysmal atrial fibrillation/which flutter on chronic anticoagulation polycythemia, and anxiety who presented to the emergency department via EMS from [facility] for evaluation of shortness of breath.Chest x-ray was read as showing bibasilar airspace disease which could be pneumonia or atelectasis, small pleural effusions, and cardiomegaly. 1. Acute hypoxic respiratory failure: Secondary to pneumonia Currently O2 support of 3 L Monitor leukocytosis, improving Continue with azithromycin and ceftriaxone Continue with albuterol, ipratropium Follow-up blood culture Echocardiogram with normal EF, grade 1 diastolic dysfunction Will need 6 minute walk prior to discharge PT/OT as tolerated 2.? UTI: Continue with ceftriaxone No culture was sent, will treat empirically 3. Hypertension: Continue with, hydrochlorothiazide, Coreg 4. PT/OT 5. Dysphagia: Speech therapist has recommended soft diet 6. Code status: full 7. DVT prophylaxis: Lovenox 8. Disposition: Pending improvement, can be moved out of IMU Time Spent With Patient Time with patient: 15 - 25 minutes Subjective Date/time seen: 04/18/23 16:05 Interval history: Feeling much better, currently on 3 L of nasal cannula Review of Systems Review of Systems: Twelve systems were reviewed. Exam Narrative: General: Thin, frail, chronically ill-appearing elderly female HEENT: Reddish bruise over the right eyelid from my fall last week. Neck: Supple. No midline vertebral tenderness. Chest: Severe kyphoscoliosis. Respiratory: Lung sounds are diminished throughout both bases. Faint wheezing. Cardiovascular: Regular rate and rhythm with S1-S2. Systolic murmurs at the upper sternal border at the apex. Gastrointestinal: Abdomen is soft, flat, nontender, and nondistended with positive bowel sounds. Skin: Warm and dry. Bruise on the right eyelid, skin tear on the right elbow. Scattered bruises on the upper extremities. Extremities: No cyanosis, clubbing, or edema. Radial and pedal pulses intact. No palpable knots or cords. 0 pulses palpable. Neurological: Alert to name, month and day of , and president. Psychiatric: Confused. Cooperative. Objective Data Vital Signs Vital Signs: Vital Signs - 24 hr 04/17/23 16:40 04/17/23 18:00 04/17/23 21:09 Temperature 96.5 F L 97.5 F L Pulse Rate 94 92 94 Respiratory Rate 18 18 Blood Pressure 131/73 133/80 Pulse Oximetry 98 93 Oxygen Delivery Oxygen Flow Rate 04/17/23 21:21 04/17/23 21:25 04/17/23 21:38 Temperature Pulse Rate 82 83 Respiratory Rate 19 19 Blood Pressure Pulse Oximetry 95 Oxygen Delivery Nasal Cannula Oxygen Flow Rate 2 04/17/23 21:54 04/17/23 20:00 04/18/23 01:06 Temperature 97.5 F L Pulse Rate 96 95 77 Respiratory Rate 18 Blood Pressure 154/69 H Pulse Oximetry 95 Oxygen Delivery Oxygen Flow Rate 04/18/23 03:06 04/18/23 03:14 04/17/23 20:00 Temperature Pulse Rate 82 84 Respiratory Rate 18 18 Blood Pressure Pulse Oximetry 95 Oxygen Delivery Nasal Cannula Oxygen Flow Rate 2 04/18/23 00:00 04/18/23 00:00
[2023-04-18] MEDS: AZITHROMYCIN 500 MG/NS 250 ML 500 MG/250 ML BAG 250 MG IVPB (16:17)
--- NOTE | 2023-04-18 21:58 | PC.NURSE ---
pt refused to take their night time medications, pt stated I am not taking any pills at 3 in the morning this RN attempted to reorient pt and educate on the importance of taking their medications but pt still refused to take them
[2023-04-19] VITALS (17 sets, daily range): BP systolic 108–118; BP diastolic 63–78; PULSE 77–92; RESP 16–20; TEMP 36.4–37; O2SAT 93–98
[2023-04-19] MEDS: IPRATROPIUM BR 0.02% INH SOLN 0.5 MG/2.5 ML VIAL INHALATION ×4 (02:19→19:54)
[2023-04-19] MEDS: ALBUTEROL SULFATE NEB 2.5 MG/3 ML INH INHALATION ×4 (02:20→19:54)
[2023-04-19] MEDS: LEVOTHYROXINE SODIUM 100 MCG TABLET PO (05:46)
[2023-04-19 07:01] LABS: Basophils Absolute Auto 0.1 K/mm3 (0.0-0.1); Basophils Percent Auto 0.4 % (0.2-1.2); Eosinophils Absolute Auto 0.1 K/mm3 (0-0.3); Eosinophils Percent Auto 0.5 % (0-4.4); Hematocrit 46.1 % (37.0-47.0); Hemoglobin 13.7 g/dL (12.0-15.0); Immature Granulocyte Percent A 7.5 % (0-0.5); Lymphocytes Absolute Auto 1.38 K/mm3 (0.9-3.2); Lymphocytes Percent Auto 9.4 % (18.3-44.2); Mean Corpuscular HGB Conc 29.7 g/dl (32-36); Mean Corpuscular Hemoglobin 28.2 pg (26-34); Mean Corpuscular Volume 95.1 fl (80-100); Mean Platelet Volume 10.7 fl (7.4-10.4); Monocytes Absolute Auto 1.2 K/mm3 (0.1-0.6); Monocytes Percent Auto 8.2 % (2.6-8.5); Neutrophils Absolute Auto 10.9 K/mm3 (1.3-6.7); Platelet Count Result 281 k/mm3 (150-375); Red Blood Count 4.85 M/mm3 (4.2-5.4); White Blood Count 14.7 K/mm3 (4.5-10.0)
[2023-04-19 07:21] LABS: Blood Urea Nitrogen 20 mg/dL (7-17); Calcium 8.7 mg/dL (8.4-10.2); Carbon Dioxide > 40 mmol/L (22-30); Chloride 84 mmol/L (98-107); Estimated Glomerular Filt Rate > 60; Glucose 80 mg/dL (65-110); Magnesium 1.7 mg/dL (1.6-2.3); Potassium 3.9 mmol/L (3.4-5.0); Sodium 132 mmol/L (137-145)
[2023-04-19] MEDS: polyethylene glycoL 3350 17 GM POWD.PACK PO (09:44)
[2023-04-19] MEDS: carvediloL 6.25 MG TABLET BY MOUTH ×2 (09:44→20:40)
[2023-04-19] MEDS: ESCITALOPRAM OXALATE 10 MG TABLET BY MOUTH (09:44)
[2023-04-19] MEDS: SENNOSIDES 8.6 MG TABLET PO (09:45)
[2023-04-19] MEDS: POTASSIUM CHLORIDE 10 MEQ ER TABLET PO (09:45)
[2023-04-19] MEDS: POLYSACCHARIDE IRON COMPLEX 150 MG CAPSULE PO (09:45)
[2023-04-19] MEDS: THERAPEUTIC MULTIVITAMINS/MINERALS TAB (*BKC) 2 TABLET PO (09:45)
[2023-04-19] MEDS: hydroCHLOROthiazide 25 MG TABLET PO (09:45)
[2023-04-19] MEDS: CHOLECALCIFEROL 1,000 UNITS TABLET 1000 UNITS BY MOUTH (09:46)
[2023-04-19] MEDS: HYDROCORTISONE 2.5% CREAM 30 GM TUBE 1 APPLIC TOPICAL ×2 (09:46→18:53)
--- NOTE | 2023-04-19 12:08 | PM.IMPN ---
Progress Note: A&P Assessment and Plan (1) Chronic respiratory failure with hypoxia, on home oxygen therapy: Code(s): J96.11 - Chronic respiratory failure with hypoxia; Z99.81 - Dependence on supplemental oxygen Status: Acute (2) History of fall: Code(s): Z91.81 - History of falling Status: Acute (3) Chronic anticoagulation: Code(s): Z79.01 - continuous churn buttermaker (current) use of anticoagulants Status: Acute (4) Paroxysmal atrial fibrillation: Code(s): I48.0 - Paroxysmal atrial fibrillation Status: Acute (5) Hypertension: Code(s): I10 - Essential (primary) hypertension Status: Acute Plan 83-year-old female with severe kyphoscoliosis causing chronic respiratory failure with hypoxia on oxygen, hypertension, hypothyroidism, paroxysmal atrial fibrillation/which flutter on chronic anticoagulation polycythemia, and anxiety who presented to the emergency department via EMS from [facility] for evaluation of shortness of breath.Chest x-ray was read as showing bibasilar airspace disease which could be pneumonia or atelectasis, small pleural effusions, and cardiomegaly. 1. Acute hypoxic respiratory failure: Secondary to pneumonia Currently O2 support of 3 L Monitor leukocytosis, improving Continue with azithromycin and ceftriaxone Continue with albuterol, ipratropium Follow-up blood culture Echocardiogram with normal EF, grade 1 diastolic dysfunction Will need 6 minute walk prior to discharge PT/OT as tolerated 2.? UTI: Continue with ceftriaxone No culture was sent, will treat empirically 3. Hypertension: Continue with, hydrochlorothiazide, Coreg 4. PT/OT 5. Dysphagia: Speech therapist has recommended soft diet 6. Code status: full 7. DVT prophylaxis: Lovenox 8. Disposition: Pending improvement Time Spent With Patient Time with patient: 15 - 25 minutes Subjective Date/time seen: 04/19/23 12:08 Interval history: No acute events overnight, slowly improving Review of Systems Review of Systems: Twelve systems were reviewed. Exam Narrative: General: Thin, frail, chronically ill-appearing elderly female HEENT: Reddish bruise over the right eyelid from my fall last week. Neck: Supple. No midline vertebral tenderness. Chest: Severe kyphoscoliosis. Respiratory: Lung sounds are diminished throughout both bases. Faint wheezing. Cardiovascular: Regular rate and rhythm with S1-S2. Systolic murmurs at the upper sternal border at the apex. Gastrointestinal: Abdomen is soft, flat, nontender, and nondistended with positive bowel sounds. Skin: Warm and dry. Bruise on the right eyelid, skin tear on the right elbow. Scattered bruises on the upper extremities. Extremities: No cyanosis, clubbing, or edema. Radial and pedal pulses intact. No palpable knots or cords. 0 pulses palpable. Neurological: Alert to name, month and day of , and president. Psychiatric: Confused. Cooperative. Objective Data Vital Signs Vital Signs: Vital Signs - 24 hr 04/18/23 13:55 04/18/23 15:49 04/18/23 15:21 Temperature Pulse Rate 91 Respiratory Rate 20 Blood Pressure Pulse Oximetry Oxygen Delivery Nasal Cannula Nasal Cannula Oxygen Flow Rate 3 3 04/18/23 15:30 04/18/23 17:59 04/18/23 18:02 Temperature Pulse Rate 94 96 Respiratory Rate 20 18 Blood Pressure Pulse Oximetry 94 Oxygen Delivery Nasal Cannula Oxygen Flow Rate 3.5 04/18/23 18:11 04/18/23 21:58 04/18/23 22:00 Temperature 97.9 F Pulse Rate 95 92 92 Respiratory Rate 20 22 H Blood Pressure 109/71 Pulse Oximetry 97 Oxygen Delivery Oxygen Flow Rate 04/19/23 02:20 04/18/23 20:00 04/19/23 00:00 Temperature Pulse Rate 82 83 83 Respiratory Rate 18 Blood Pressure Pulse Oximetry Oxygen Delivery Oxygen Flow Rate 04/19/23 02:33 04/19/23 04:00 04/19/23 06:00 Temperature 97.5 F L Pulse Rate 84 85 9
[2023-04-19] MEDS: AZITHROMYCIN 500 MG/NS 250 ML 500 MG/250 ML BAG 250 MG IVPB (15:54)
[2023-04-20] VITALS (20 sets, daily range): BP systolic 99–122; BP diastolic 67–82; PULSE 73–98; RESP 14–22; TEMP 35.8–36.4; O2SAT 82–99
[2023-04-20] MEDS: IPRATROPIUM BR 0.02% INH SOLN 0.5 MG/2.5 ML VIAL INHALATION ×4 (03:26→20:18)
[2023-04-20] MEDS: ALBUTEROL SULFATE NEB 2.5 MG/3 ML INH INHALATION ×4 (03:26→20:18)
[2023-04-20] MEDS: LEVOTHYROXINE SODIUM 100 MCG TABLET PO (06:34)
[2023-04-20 07:43] LABS: Basophils Absolute Auto 0.1 K/mm3 (0.0-0.1); Basophils Percent Auto 0.6 % (0.2-1.2); Eosinophils Absolute Auto 0.1 K/mm3 (0-0.3); Eosinophils Percent Auto 0.7 % (0-4.4); Hematocrit 48.8 % (37.0-47.0); Hemoglobin 14.4 g/dL (12.0-15.0); Immature Granulocyte Absolute 1.16 K/mm3 (0.00-0.031); Immature Granulocyte Percent A 8.1 % (0-0.5); Lymphocytes Absolute Auto 1.41 K/mm3 (0.9-3.2); Lymphocytes Percent Auto 9.9 % (18.3-44.2); Mean Corpuscular HGB Conc 29.5 g/dl (32-36); Mean Corpuscular Hemoglobin 28.5 pg (26-34); Mean Corpuscular Volume 96.4 fl (80-100); Mean Platelet Volume 10.8 fl (7.4-10.4); Monocytes Absolute Auto 1.1 K/mm3 (0.1-0.6); Monocytes Percent Auto 7.5 % (2.6-8.5); Neutrophils Absolute Auto 10.4 K/mm3 (1.3-6.7); Neutrophils Percent Auto 73.2 % (45.5-73.1); Platelet Count Result 299 k/mm3 (150-375); Red Blood Count 5.06 M/mm3 (4.2-5.4); White Blood Count 14.3 K/mm3 (4.5-10.0)
[2023-04-20 08:00] LABS: Blood Urea Nitrogen 19 mg/dL (7-17); Calcium 8.8 mg/dL (8.4-10.2); Carbon Dioxide > 40 mmol/L (22-30); Chloride 87 mmol/L (98-107); Estimated Glomerular Filt Rate > 60; Glucose 74 mg/dL (65-110); Potassium 4.1 mmol/L (3.4-5.0); Sodium 132 mmol/L (137-145)
[2023-04-20] MEDS: POTASSIUM CHLORIDE 10 MEQ ER TABLET PO (09:13)
[2023-04-20] MEDS: ESCITALOPRAM OXALATE 10 MG TABLET BY MOUTH (09:13)
[2023-04-20] MEDS: polyethylene glycoL 3350 17 GM POWD.PACK PO (09:13)
[2023-04-20] MEDS: CHOLECALCIFEROL 1,000 UNITS TABLET 1000 UNITS BY MOUTH (09:13)
[2023-04-20] MEDS: SENNOSIDES 8.6 MG TABLET PO (09:13)
[2023-04-20] MEDS: THERAPEUTIC MULTIVITAMINS/MINERALS TAB (*BKC) 2 TABLET PO (09:13)
[2023-04-20] MEDS: carvediloL 6.25 MG TABLET BY MOUTH ×2 (09:14→20:29)
[2023-04-20] MEDS: hydroCHLOROthiazide 25 MG TABLET PO (09:14)
[2023-04-20] MEDS: CALCITONIN NASAL 200 UNITS/SPRAY 3.7 ML BOTTLE 1 SPRAY NASAL (09:14)
[2023-04-20] MEDS: POLYSACCHARIDE IRON COMPLEX 150 MG CAPSULE PO (09:14)
--- NOTE | 2023-04-20 09:35 | PCOTNOTE ---
Per RN, pt is having a bad morning and requested to have therapy attempt in the afternoon.
--- NOTE | 2023-04-20 13:18 | PCOTNOTE ---
Attempted to see pt for Occupational Therapy treatment. Pt declined to complete any self care tasks and/or therapeutic activities due to being too tired. Pt states that she just got back into bed and was having a nap. Pt request that therapist attempt tomorrow in order to complete adls.
--- NOTE | 2023-04-20 14:57 | PM.IMPN ---
Progress Note: A&P Assessment and Plan (1) Chronic respiratory failure with hypoxia, on home oxygen therapy: Code(s): J96.11 - Chronic respiratory failure with hypoxia; Z99.81 - Dependence on supplemental oxygen Status: Acute Assessment and Plan: 04/20 requiring 4 L of oxygen (uses not oxygen at baseline) continue PT OT with goal of returning to [facility] (2) Pneumonia: Code(s): J18.9 - Pneumonia, unspecified organism Status: Acute Assessment and Plan: continue ceftriaxone and azithromycin, initiated 04/17 (3) Paroxysmal atrial fibrillation: Code(s): I48.0 - Paroxysmal atrial fibrillation Status: Acute Assessment and Plan: continue anticoagulation (4) Hypertension: Qualifiers: Hypertension type: unspecified Qualified Code(s): I10 - Essential (primary) hypertension Code(s): I10 - Essential (primary) hypertension Status: Acute Assessment and Plan: Continue current regimen 04/20 BP reviewed and adequately controlled Subjective Date/time seen: 04/20/23 14:57 Exam Narrative: General: Thin, frail, chronically ill-appearing elderly female HEENT: Reddish bruise over the right eyelid from my fall last week. Neck: no JVD Chest: Severe kyphoscoliosis. Respiratory: Lung sounds are diminished throughout both bases. no wheezing Cardiovascular: Regular rate and rhythm with S1-S2. Systolic murmurs at the upper sternal border at the apex. Gastrointestinal: Abdomen is soft, flat, nontender, and nondistended with positive bowel sounds. Skin: Warm and dry. Bruise on the right eyelid, skin tear on the right elbow. Scattered bruises on the upper extremities. Extremities: No cyanosis, clubbing, or edema. Neurological: mildly hard of hearing. Cranial nerves otherwise symmetric to inspection. Psychiatric: Alert and oriented to person place time and situation Objective Data Vital Signs Vital Signs: Vital Signs - 24 hr 04/19/23 16:00 04/19/23 16:12 04/19/23 16:00 Temperature Pulse Rate 80 81 82 Respiratory Rate 18 18 Blood Pressure Pulse Oximetry Oxygen Delivery Oxygen Flow Rate Fraction of Inspired Oxygen 04/19/23 19:57 04/19/23 19:57 04/19/23 20:08 Temperature Pulse Rate 84 84 85 Respiratory Rate 16 16 16 Blood Pressure Pulse Oximetry 95 Oxygen Delivery Nasal Cannula Oxygen Flow Rate 3.5 Fraction of Inspired Oxygen 04/19/23 20:40 04/19/23 20:15 04/19/23 20:00 Temperature 97.5 F L Pulse Rate 86 86 Respiratory Rate 16 Blood Pressure 108/78 Pulse Oximetry 97 97 Oxygen Delivery Nasal Cannula Oxygen Flow Rate 3 Fraction of Inspired Oxygen 04/19/23 20:00 04/20/23 00:00 04/20/23 03:30 Temperature Pulse Rate 82 83 83 Respiratory Rate 16 Blood Pressure Pulse Oximetry Oxygen Delivery Oxygen Flow Rate Fraction of Inspired Oxygen 04/20/23 04:00 04/20/23 04:53 04/20/23 09:01 Temperature 97.2 F L Pulse Rate 82 98 88 Respiratory Rate 18 22 H Blood Pressure 122/82 Pulse Oximetry 94 Oxygen Delivery Oxygen Flow Rate Fraction of Inspired Oxygen 04/20/23 09:02 04/20/23 09:16 04/20/23 09:14 Temperature Pulse Rate 90 88 Respiratory Rate 22 H Blood Pressure Pulse Oximetry Oxygen Delivery Nasal Cannula Oxygen Flow Rate 4 Fraction of Inspired Oxygen 04/20/23 08:00 04/20/23 08:00 04/20/23 14:00 Temperature 97.6 F Pulse Rate 74 78 Respiratory Rate 14 Blood Pressure 122/81 Pulse Oximetry 94 99 Oxygen Delivery Nasal Cannula Oxygen Flow Rate 44 Fraction of Inspired Oxygen 32 04/20/23 12:00 04/20/23 14:28 04/20/23 14:37 Temperature Pulse Rate 88 89 86 Respiratory Rate 20 Blood Pressure Pulse Oximetry Oxygen Delivery Oxygen Flow Rate Fraction of Inspired Oxygen Intake/Output Intake/Output: Intake & Output
[2023-04-20] MEDS: AZITHROMYCIN 500 MG/NS 250 ML 500 MG/250 ML BAG 250 MG IVPB (15:39)
[2023-04-20] MEDS: RIVAROXABAN 15 MG TABLET PO (17:51)
[2023-04-21] VITALS (19 sets, daily range): BP systolic 119–133; BP diastolic 67–77; PULSE 69–98; RESP 15–20; TEMP 36.1–36.3; O2SAT 94–99
[2023-04-21] MEDS: LEVOTHYROXINE SODIUM 100 MCG TABLET PO (05:43)
[2023-04-21] MEDS: ACETAMINOPHEN 325 MG TABLET 650 MG PO ×2 (09:15→18:40)
[2023-04-21] MEDS: CHOLECALCIFEROL 1,000 UNITS TABLET 1000 UNITS BY MOUTH (09:15)
[2023-04-21] MEDS: carvediloL 6.25 MG TABLET BY MOUTH ×2 (09:15→23:35)
[2023-04-21] MEDS: POTASSIUM CHLORIDE 10 MEQ ER TABLET PO (09:16)
[2023-04-21] MEDS: SENNOSIDES 8.6 MG TABLET PO (09:16)
[2023-04-21] MEDS: POLYSACCHARIDE IRON COMPLEX 150 MG CAPSULE PO (09:16)
[2023-04-21] MEDS: ESCITALOPRAM OXALATE 10 MG TABLET BY MOUTH (09:16)
[2023-04-21] MEDS: hydroCHLOROthiazide 25 MG TABLET PO (09:16)
--- NOTE | 2023-04-21 09:20 | PC.NURSE ---
This pt's physical assessment showed signs of respiratory distress. Patient found on room air. Her oxygen saturation was between 79%-82% on room air, her fingers were cyanotic and the pt presented confused. This RN put 8 L HF NC on the pt and stayed with the pt. This RN notified the MD, RT, and weigh and charge worker of the present situation. Orders were given and pt stabilized.
[2023-04-21] MEDS: polyethylene glycoL 3350 17 GM POWD.PACK PO (09:33)
[2023-04-21] MEDS: THERAPEUTIC MULTIVITAMINS/MINERALS TAB (*BKC) 2 TABLET PO (09:33)
[2023-04-21] MEDS: CALCITONIN NASAL 200 UNITS/SPRAY 3.7 ML BOTTLE 1 SPRAY NASAL (09:37)
[2023-04-21 09:47] LABS: Alveolar/Arterial O2 Gradient 158.9 mmHg; Base Excess ABG 16.9 mEq/l (+/-2.0); Fractional Inspired Oxygen 48 %; Methemoglobin ABG 0.3 %THb (0-1.5); Oxygen Content ABG 21.3 %vol (16.0-22.0); Oxygen Saturation ABG 97.4 % (95.0-100.0); Oxyhemoglobin 96.9 % THb (90.0-100.0); PO2 ABG 100.6 mmHg (80.0-100.0); Reduced Hemoglobin 2.8 %THb (0-5.0); Total Hemoglobin 15.6 g/dL (12.0-18.0); pH ABG 7.416 (7.350-7.450)
[2023-04-21 09:48] LABS: Device HIGH FLOW NASAL CANN; Modified Allen's Test Pass; PCO2 ABG 73.2 mmHg (35.0-45.0); Site Drawn RIGHT RADIAL
[2023-04-21] MEDS: IPRATROPIUM BR 0.02% INH SOLN 0.5 MG/2.5 ML VIAL INHALATION ×3 (09:55→19:12)
[2023-04-21] MEDS: ALBUTEROL SULFATE NEB 2.5 MG/3 ML INH INHALATION ×3 (09:55→19:12)
--- NOTE | 2023-04-21 11:59 | PCOTNOTE ---
Per RN, pt is not appropriate at this time for occupational therapy treatment due to having respiratory issues. Will check at a later time per POC duration/frequency.
--- NOTE | 2023-04-21 13:35 | PM.IMPN ---
Progress Note: A&P Assessment and Plan (1) Chronic respiratory failure with hypoxia, on home oxygen therapy: Code(s): J96.11 - Chronic respiratory failure with hypoxia; Z99.81 - Dependence on supplemental oxygen Status: Acute Assessment and Plan: pt is needing 7 lites of oxygen ABG and cxr ordered today Pt to kept NPo will need bedside swallow evaluation IV abx changed to IV zosyn and IV vancomycin continue PT OT with goal of returning to [facility] (2) Pneumonia: Code(s): J18.9 - Pneumonia, unspecified organism Status: Acute Assessment and Plan: changed to IV vanc and iv zosyn due to increased oxygen needs blood culture full report pending (3) Paroxysmal atrial fibrillation: Code(s): I48.0 - Paroxysmal atrial fibrillation Status: Acute Assessment and Plan: continue anticoagulation (4) Hypertension: Qualifiers: Hypertension type: unspecified Qualified Code(s): I10 - Essential (primary) hypertension Code(s): I10 - Essential (primary) hypertension Status: Acute Assessment and Plan: Continue current regimen Bp chronic and stable Subjective Date/time seen: 04/21/23 13:35 Interval history: 83-year-old female with severe kyphoscoliosis causing chronic respiratory failure with hypoxia on oxygen, hypertension, hypothyroidism, paroxysmal atrial fibrillation/which flutter on chronic anticoagulation polycythemia, and anxiety who presented to the emergency department via EMS from [facility] for evaluation of shortness of breath. Pt admitted for chronic respiratory failure and pneumonia, unfortunately pt had to be placed on 7 liters of oxygen Cxr shows BL pneumonia ? aspiration pneumonia Review of Systems Review of Systems: increase in SOB Exam Narrative: General: Thin, frail, chronically ill-appearing elderly female HEENT: Reddish bruise over the right eyelid from my fall last week. Neck: no JVD Chest: Severe kyphoscoliosis. Respiratory: Lung sounds are diminished throughout both bases. no wheezing Cardiovascular: Regular rate and rhythm with S1-S2. Systolic murmurs at the upper sternal border at the apex. Gastrointestinal: Abdomen is soft, flat, nontender, and nondistended with positive bowel sounds. Skin: Warm and dry. Bruise on the right eyelid, skin tear on the right elbow. Scattered bruises on the upper extremities. Extremities: No cyanosis, clubbing, or edema. Neurological: mildly hard of hearing. Cranial nerves otherwise symmetric to inspection. Psychiatric: Alert and oriented to person place time and situation Objective Data Vital Signs Vital Signs: Vital Signs - 24 hr 04/20/23 14:00 04/20/23 14:28 04/20/23 14:37 Temperature 36.4 C Pulse Rate 78 89 86 Respiratory Rate 14 20 Blood Pressure 122/81 Pulse Oximetry 99 Oxygen Delivery Oxygen Flow Rate 04/20/23 16:00 04/20/23 20:19 04/20/23 20:20 Temperature Pulse Rate 75 84 84 Respiratory Rate 16 18 Blood Pressure Pulse Oximetry 94 Oxygen Delivery Nasal Cannula Oxygen Flow Rate 3 04/20/23 20:28 04/20/23 20:29 04/20/23 20:00 Temperature Pulse Rate 86 90 Respiratory Rate Blood Pressure Pulse Oximetry 97 Oxygen Delivery Nasal Cannula Oxygen Flow Rate 4 04/20/23 22:14 04/20/23 21:33 04/20/23 20:00 Temperature 35.8 C L Pulse Rate 73 77 Respiratory Rate 20 20 Blood Pressure 99/67 L Pulse Oximetry 93 82 L Oxygen Delivery CPAP Oxygen Flow Rate 04/21/23 00:00 04/21/23 04:00 04/21/23 04:35 Temperature 36.3 C L Pulse Rate 72 80 79 Respiratory Rate 20 Blood Pressure 123/77 Pulse Oximetry 99 Oxygen Delivery Oxygen Flow Rate 04/21/23 09:15 04/21/23 09:56 04/21/23 09:50 Temperature Pulse Rate 98 96 Respiratory Rate 18 Blood Pressure Pulse Oximetry 96 Oxygen Delivery High
[2023-04-21] MEDS: DEXTROSE 5%/0.45% SOD CHL 1,000 ML 50 ML IV CONT (14:29)
[2023-04-21] MEDS: PIPERACILLN/TAZ 3.375GM/NS50ML 3.375 GM/50 ML BAG IVPB ×3 (14:29→23:35)
[2023-04-21] MEDS: RIVAROXABAN 15 MG TABLET PO (18:40)
[2023-04-21 21:43] LABS: Glucose Point of Care 127 mg/dl (65-105)
[2023-04-22] VITALS (22 sets, daily range): BP systolic 103–118; BP diastolic 40–76; PULSE 64–99; RESP 15–27; TEMP 36.2–36.6; O2SAT 93–100
[2023-04-22] MEDS: ALBUTEROL SULFATE NEB 2.5 MG/3 ML INH INHALATION ×4 (01:34→20:53)
[2023-04-22] MEDS: IPRATROPIUM BR 0.02% INH SOLN 0.5 MG/2.5 ML VIAL INHALATION ×4 (01:34→20:51)
[2023-04-22] MEDS: PIPERACILLN/TAZ 3.375GM/NS50ML 3.375 GM/50 ML BAG IVPB ×3 (05:55→18:13)
[2023-04-22] MEDS: LEVOTHYROXINE SODIUM 100 MCG TABLET PO (05:55)
[2023-04-22 06:53] LABS: Hematocrit 48.7 % (37.0-47.0); Hemoglobin 14.7 g/dL (12.0-15.0); Mean Corpuscular HGB Conc 30.2 g/dl (32-36); Mean Corpuscular Hemoglobin 28.8 pg (26-34); Mean Corpuscular Volume 95.5 fl (80-100); Mean Platelet Volume 10.3 fl (7.4-10.4); Platelet Count Result 335 k/mm3 (150-375); Red Cell Distribution Width 14.9 % (11.5-14.5); White Blood Count 11.5 K/mm3 (4.5-10.0)
[2023-04-22 07:31] LABS: Blood Urea Nitrogen 15 mg/dL (7-17); Calcium 8.5 mg/dL (8.4-10.2); Carbon Dioxide > 40 mmol/L (22-30); Chloride 85 mmol/L (98-107); Estimated Glomerular Filt Rate > 60; Glucose 92 mg/dL (65-110); Potassium 4.1 mmol/L (3.4-5.0); Sodium 131 mmol/L (137-145)
--- NOTE | 2023-04-22 09:06 | PCSTNOTE ---
Bedside Swallow Evaluation was ordered by Dr. Shine however she approved discharging the order; it was labeled completed but should have been cancelled. Dr. Donato allowed Modified Barium Swallow study.
[2023-04-22 09:30] LABS: Phosphorus 3.7 mg/dL (2.5-4.5)
--- NOTE | 2023-04-22 10:22 | PCSTNOTE ---
Please refer to the Modified Barium Swallow Evaluation in the EMR.
[2023-04-22] MEDS: THERAPEUTIC MULTIVITAMINS/MINERALS TAB (*BKC) 2 TABLET PO (12:13)
[2023-04-22] MEDS: POTASSIUM CHLORIDE 10 MEQ ER TABLET PO (12:13)
[2023-04-22] MEDS: POLYSACCHARIDE IRON COMPLEX 150 MG CAPSULE PO (12:13)
[2023-04-22] MEDS: SENNOSIDES 8.6 MG TABLET PO (12:13)
[2023-04-22] MEDS: ESCITALOPRAM OXALATE 10 MG TABLET BY MOUTH (12:14)
[2023-04-22] MEDS: hydroCHLOROthiazide 25 MG TABLET PO (12:14)
[2023-04-22] MEDS: carvediloL 6.25 MG TABLET BY MOUTH ×2 (12:14→20:52)
[2023-04-22] MEDS: CHOLECALCIFEROL 1,000 UNITS TABLET 1000 UNITS BY MOUTH (12:14)
[2023-04-22] MEDS: polyethylene glycoL 3350 17 GM POWD.PACK PO (12:14)
--- NOTE | 2023-04-22 12:39 | PCNFU ---
Nutrition Follow-Up Complete: Inadequate oral intake related to loss of appetite as evidenced by meal intakes 10-25%, BMI 17.7 Goal:Improve PO intake to at least 50% meals and supplements Maintain weight Pt current nutrition is Soft and bite sized, heart healthy. Nutrition recommendation: resume Ensure Enlive TID Last recorded weight is 41kg. Bowel Motility: +BM 04/21 Labs Reviewed: HCT:48.7, NA:131, Cr:0.4 Meds Noted: HCTZ, KCL Skin: no skin issues noted Additional Notes: Pt was NPO for a speech eval, passed and diet resumed to soft and bite sized. Intake appears to have been good at 75-100%. Will resume Ensure Enlive TID per previous orders. Monitoring intakes, weights, labs, supplement tolerance, plan of care Follow up in 5 days
[2023-04-22] MEDS: DEXTROSE 5%/0.45% SOD CHL 1,000 ML 50 ML IV CONT (17:03)
--- NOTE | 2023-04-22 17:50 | PM.IMPN ---
Progress Note: A&P Assessment and Plan (1) Chronic respiratory failure with hypoxia, on home oxygen therapy: Code(s): J96.11 - Chronic respiratory failure with hypoxia; Z99.81 - Dependence on supplemental oxygen Status: Acute Assessment and Plan: pt needing 7 lites of oxygen, now weaned off to 3 liters/minutes ABG and cxr reviewed Pt to kept NPo Spoke with speech therapist in detail. Patient passed both bedside and modified barium swallow IV abx changed to IV zosyn and IV vancomycin continue PT OT with goal of returning to [facility] Will order home O2 eval tomorrow (2) Pneumonia: Code(s): J18.9 - Pneumonia, unspecified organism Status: Acute Assessment and Plan: changed to IV vanc and iv zosyn due to increased oxygen needs blood culture full report pending (3) Paroxysmal atrial fibrillation: Code(s): I48.0 - Paroxysmal atrial fibrillation Status: Acute Assessment and Plan: continue anticoagulation (4) Hypertension: Qualifiers: Hypertension type: unspecified Qualified Code(s): I10 - Essential (primary) hypertension Code(s): I10 - Essential (primary) hypertension Status: Acute Assessment and Plan: Continue current regimen Bp chronic and stable Plan Home O2 eval in a.m. DC planning back to assisted living in a.m. if she remains stable PT/OT evaluation and treatment ordered ? Patient seen and examined at bedside during my morning rounds ? Collaborated with patient's nurse at the bedside in detail and addressed all concerns ? Labs, electrolytes, radiology, investigations and test results reviewed ? Consult/Nursing/Ancilliary notes on the chart reviewed and appreciated ? Spoke with patient/family at the bedside and answered all the questions that they had Repeat labs in a.m. Electrolyte replacement as per protocol. Patient will be monitored very closely on the floor. Further recommendations as per the hospital course. Time Spent With Patient Time with patient: 25 - 35 minutes Subjective Date/time seen: 04/22/23 17:50 Interval history: 83-year-old female with severe kyphoscoliosis causing chronic respiratory failure with hypoxia on oxygen, hypertension, hypothyroidism, paroxysmal atrial fibrillation/which flutter on chronic anticoagulation polycythemia, and anxiety who presented to the emergency department via EMS from [facility] for evaluation of shortness of breath. Pt admitted for chronic respiratory failure and pneumonia, unfortunately pt had to be placed on 7 liters of oxygen Cxr shows BL pneumonia ? aspiration pneumonia 04/22/2023: Patient seen and evaluated at bedside. Feels tired and fatigued. Weaning off on oxygen. Now down to 3 liters/minutes Review of Systems Review of Systems: 14 systems were reviewed with pertinent positives and negatives per HPI. Except as documented in the HPI/progress notes, all other systems were reviewed and are negative. All systems reviewed & are unremarkable except as noted in HPI and below Exam Narrative: General: Thin, frail, chronically ill-appearing elderly female HEENT: Reddish bruise over the right eyelid from my fall last week. Neck: no JVD Chest: Severe kyphoscoliosis. Respiratory: Lung sounds are diminished throughout both bases. no wheezing Cardiovascular: Regular rate and rhythm with S1-S2. Systolic murmurs at the upper sternal border at the apex. Gastrointestinal: Abdomen is soft, flat, nontender, and nondistended with positive bowel sounds. Skin: Warm and dry. Bruise on the right eyelid, skin tear on the right elbow. Scattered bruises on the upper extremities. Extremities: No cyanosis, clubbing, or edema. Neurological: mildly hard of hearing. Cranial nerves otherwise symmetric to inspection. Psychiatric: Alert and oriented to person place time and situation Objective Data Vital Signs Vi
[2023-04-22] MEDS: RIVAROXABAN 15 MG TABLET PO (18:13)
[2023-04-23] VITALS (18 sets, daily range): BP systolic 134–139; BP diastolic 69–80; PULSE 61–147; RESP 18–22; TEMP 36.7–37.3; O2SAT 86–100
[2023-04-23] MEDS: PIPERACILLN/TAZ 3.375GM/NS50ML 3.375 GM/50 ML BAG IVPB ×3 (01:00→12:56)
[2023-04-23] MEDS: IPRATROPIUM BR 0.02% INH SOLN 0.5 MG/2.5 ML VIAL INHALATION ×3 (03:17→13:56)
[2023-04-23] MEDS: ALBUTEROL SULFATE NEB 2.5 MG/3 ML INH INHALATION ×3 (03:18→13:55)
[2023-04-23] MEDS: LEVOTHYROXINE SODIUM 100 MCG TABLET PO (06:59)
[2023-04-23 07:43] LABS: Basophils Absolute Auto 0.1 K/mm3 (0.0-0.1); Basophils Percent Auto 0.6 % (0.2-1.2); Eosinophils Absolute Auto 0.1 K/mm3 (0-0.3); Eosinophils Percent Auto 0.8 % (0-4.4); Hematocrit 48.2 % (37.0-47.0); Hemoglobin 14.9 g/dL (12.0-15.0); Immature Granulocyte Absolute 0.53 K/mm3 (0.00-0.031); Immature Granulocyte Percent A 3.8 % (0-0.5); Lymphocytes Absolute Auto 1.43 K/mm3 (0.9-3.2); Lymphocytes Percent Auto 10.2 % (18.3-44.2); Mean Corpuscular HGB Conc 30.9 g/dl (32-36); Mean Corpuscular Hemoglobin 28.8 pg (26-34); Mean Corpuscular Volume 93.2 fl (80-100); Mean Platelet Volume 10.4 fl (7.4-10.4); Monocytes Absolute Auto 1.1 K/mm3 (0.1-0.6); Monocytes Percent Auto 7.6 % (2.6-8.5); Neutrophils Absolute Auto 10.9 K/mm3 (1.3-6.7); Platelet Count Result 407 k/mm3 (150-375); Red Blood Count 5.17 M/mm3 (4.2-5.4); Red Cell Distribution Width 14.8 % (11.5-14.5); White Blood Count 14.1 K/mm3 (4.5-10.0)
[2023-04-23 08:16] LABS: Blood Urea Nitrogen 13 mg/dL (7-17); Calcium 8.6 mg/dL (8.4-10.2); Carbon Dioxide > 40 mmol/L (22-30); Chloride 83 mmol/L (98-107); Estimated Glomerular Filt Rate > 60; Glucose 85 mg/dL (65-110); Potassium 3.9 mmol/L (3.4-5.0); Sodium 128 mmol/L (137-145)
[2023-04-23] MEDS: polyethylene glycoL 3350 17 GM POWD.PACK PO (10:23)
[2023-04-23] MEDS: POTASSIUM CHLORIDE 10 MEQ ER TABLET PO (10:23)
[2023-04-23] MEDS: carvediloL 6.25 MG TABLET BY MOUTH ×2 (10:24→20:55)
[2023-04-23] MEDS: THERAPEUTIC MULTIVITAMINS/MINERALS TAB (*BKC) 2 TABLET PO (10:24)
[2023-04-23] MEDS: SODIUM CHLORIDE 1 GM TABLET PO ×2 (10:24→17:23)
[2023-04-23] MEDS: CHOLECALCIFEROL 1,000 UNITS TABLET 1000 UNITS BY MOUTH (10:24)
[2023-04-23] MEDS: hydroCHLOROthiazide 25 MG TABLET PO (10:25)
[2023-04-23] MEDS: ESCITALOPRAM OXALATE 10 MG TABLET BY MOUTH (10:25)
[2023-04-23] MEDS: POLYSACCHARIDE IRON COMPLEX 150 MG CAPSULE PO (10:25)
[2023-04-23] MEDS: SENNOSIDES 8.6 MG TABLET PO (10:26)
--- NOTE | 2023-04-23 11:28 | HOMEO2EVAL ---
Evaluation was performed at [facility] Home Oxygen Evaluation RC: Home Oxygen (O2) Evaluation Start: 04/23/23 07:00 Freq: ONCE Status: Active Protocol: RPE Activity Type Activity Date Activity User E-sign Co-sign Detail Recorded Client Recorded Date Recorded By Document 04/23/23 11:06 [email or web address] [email or web address] 04/23/23 11:28 KRM Document 04/23/23 11:09 KRM [email or web address] 04/23/23 11:28 KRM Document 04/23/23 11:10 KRM [email or web address] 04/23/23 11:28 KRM Document 04/23/23 11:12 KRM [email or web address] 04/23/23 11:28 KRM 04/23/23 04/23/23 04/23/23 11:06 11:09 11:10 Home O2 Evaluation [Oxygen] -Test Phase Resting Exercise Exercise -Oxygen Delivery Room Air Room Air Nasal Cannula -Oxygen Flow Rate (L/min) 1 [Pulse Oximetry] -Pulse Oximetry (90-100 %) 95 85 L 86 L [Pulse Rate] -Pulse Rate (60-100 beats/min) 81 88 88 [Evaluation] -Activity Tolerance Poor Poor [Comments] -Home Oxygen Evaluation Comments [Charges] -Evaluation Charges 04/23/23 11:12 Home O2 Evaluation [Oxygen] -Test Phase Exercise -Oxygen Delivery Nasal Cannula -Oxygen Flow Rate (L/min) 2 [Pulse Oximetry] -Pulse Oximetry (90-100 %) 89 L [Pulse Rate] -Pulse Rate (60-100 beats/min) 87 [Evaluation] -Activity Tolerance Poor [Comments] -Home Oxygen Evaluation Comments Pt. unable to ambulate for me . Tried to get her up and walk to bathroom but pt . unable to get on side of bed with my help. Informed Taniya with [facility] . [Charges] -Evaluation Charges O2 Evaluation by Pulmonary
--- NOTE | 2023-04-23 11:30 | PCRCNOTE ---
Addendum entered by Serena Nieves, TITLE CURATOR 04/23/23 12:18: PER FAMILY REQUEST REVALUATED PT. FOR O2. 2 THERAPIST ASSISTED HER TO THE RESTROOM VIA WALKER WITH GAIT BELT. PT. REQUIRES 2LPM AT REST AND 3LPM WITH ACTIVITY. Original Note: Home o2 evaluation attempted. Tried to get pt. up to walk to bathroom. Pt. unable to get to side of bed even with gate belt and my help. Just with that activity pt. spo2 dropped to 86%, titrated o2 up to 2lpm and spo2 came up to 89%. Spoke with pt. regarding discharge destination and she insist she wants to go back to [place]. Spoke with Taniya in [facility] about concerns with ambulation and discharge destination. Taniya states she will follow up with provider.
--- NOTE | 2023-04-23 12:17 | HOMEO2EVAL ---
Evaluation was performed at [facility] Home Oxygen Evaluation RC: Home Oxygen (O2) Evaluation Start: 04/23/23 07:00 Freq: ONCE Status: Active Protocol: RPE Activity Type Activity Date Activity User E-sign Co-sign Detail Recorded Client Recorded Date Recorded By Document 04/23/23 11:50 KRM [email or web address] 04/23/23 12:17 KRM Document 04/23/23 11:52 KRM [email or web address] 04/23/23 12:17 KRM Document 04/23/23 11:54 KRM [email or web address] 04/23/23 12:17 KRM Document 04/23/23 12:00 KRM [email or web address] 04/23/23 12:17 KRM Document 04/23/23 12:05 KRM [email or web address] 04/23/23 12:17 KRM 04/23/23 04/23/23 04/23/23 11:50 11:52 11:54 Home O2 Evaluation [Oxygen] -Test Phase Resting Resting Resting -Oxygen Delivery Room Air Nasal Cannula Nasal Cannula -Oxygen Flow Rate (L/min) 1 2 [Pulse Oximetry] -Pulse Oximetry (90-100 %) 87 L 88 L 90 [Pulse Rate] -Pulse Rate (60-100 beats/min) 80 80 80 [Evaluation] -Activity Tolerance Poor Poor [Exercise] -Ambulation Distance (feet) -Ambulation Distance (meters) [Comments] -Home Oxygen Evaluation Comments [Charges] -Evaluation Charges 04/23/23 04/23/23 12:00 12:05 Home O2 Evaluation [Oxygen] -Test Phase Exercise Exercise -Oxygen Delivery Nasal Cannula Nasal Cannula -Oxygen Flow Rate (L/min) 2 3 [Pulse Oximetry] -Pulse Oximetry (90-100 %) 86 L 90 [Pulse Rate] -Pulse Rate (60-100 beats/min) 84 84 [Evaluation] -Activity Tolerance Poor Poor [Exercise] -Ambulation Distance (feet) 25 -Ambulation Distance (meters) 7.61 [Comments] -Home Oxygen Evaluation Comments 2lpm at rest, 3lpm with activity. [Charges] -Evaluation Charges O2 Evaluation by Pulmonary
--- NOTE | 2023-04-23 13:27 | PCRCNOTE ---
Addendum entered by Serena Nieves, PUBLIC HEALTH TRAINING ASSISTANT 04/23/23 13:45: UPDATED FAX # [phone] Original Note: FAXED O2 SETUP TO [facility] PHONE [phone] FAX [phone]
--- NOTE | 2023-04-23 14:21 | PM.DS ---
DS: Admitting Diagnosis Discharge Date 04/23/2023: Admitting Diagnosis Acute on chronic respiratory failure with hypercapnia and hypoxia Paroxysmal atrial fibrillation DS: Discharge Diagnosis Discharge Diagnosis (1) Chronic respiratory failure with hypoxia, on home oxygen therapy: Code(s): J96.11 - Chronic respiratory failure with hypoxia; Z99.81 - Dependence on supplemental oxygen Status: Acute (2) Chronic anticoagulation: Code(s): Z79.01 - halfway (current) use of anticoagulants Status: Acute (3) Paroxysmal atrial fibrillation: Code(s): I48.0 - Paroxysmal atrial fibrillation Status: Acute (4) Hypertension: Qualifiers: Hypertension type: unspecified Qualified Code(s): I10 - Essential (primary) hypertension Code(s): I10 - Essential (primary) hypertension Status: Acute (5) Lethargy: Code(s): R53.83 - Other fatigue Status: Acute (6) Mitral regurgitation and aortic stenosis: Code(s): I08.0 - Rheumatic disorders of both mitral and aortic valves Status: Acute (7) Polycythemia vera: Code(s): D45 - Polycythemia vera Status: Acute (8) B12 deficiency: Code(s): E53.8 - Deficiency of other specified B group vitamins Status: Acute (9) Generalized anxiety disorder: Code(s): F41.1 - Generalized anxiety disorder Status: Acute (10) Hypothyroidism: Code(s): E03.9 - Hypothyroidism, unspecified Status: Acute (11) AMS (altered mental status): Code(s): R41.82 - Altered mental status, unspecified Status: Acute (12) Hypercapnia: Code(s): R06.89 - Other abnormalities of breathing Status: Acute (13) Benign essential HTN: Code(s): I10 - Essential (primary) hypertension Status: Acute (14) Anemia: Code(s): D64.9 - Anemia, unspecified Status: Acute (15) Back pain: Code(s): M54.9 - Dorsalgia, unspecified Status: Acute (16) RICK (generalized anxiety disorder): Code(s): F41.1 - Generalized anxiety disorder Status: Acute (17) Arthritis: Code(s): M19.90 - Unspecified osteoarthritis, unspecified site Status: Acute (18) Compensated hypothyroidism: Code(s): E03.9 - Hypothyroidism, unspecified Status: Acute (19) Kyphoscoliosis: Code(s): M41.9 - Scoliosis, unspecified Status: Acute DS: Summary Hospital Course Reason for hospitalization: Patient admitted with shortness of breath requiring increased oxygen needs. Hospital Course: H&P: HPI History of Present Illness Date/Time: 04/16/23? 14:00 Chief Complaint: Shortness of breath. Narrative: This is an 83-year-old female with severe kyphoscoliosis causing chronic respiratory failure with hypoxia on oxygen, hypertension, hypothyroidism, paroxysmal atrial fibrillation/which flutter on chronic anticoagulation polycythemia, and anxiety who presented to the emergency department via EMS from [facility] for evaluation of shortness of breath. She is able to provide some history however her son provides additional information as she is a bit lethargic. She has a history of falls and has been seen in the emergency department several times for the same over the past month and half for so. Typically she ambulates with a walker but has been in a wheelchair more often due to the falls. She reports having poor balance which causes the falls. Her last visit to the ER was on 04/10/2023 at which time she presented for evaluation of fatigue and weakness for couple of weeks. During that visit her SpO2 seemed to however in the high 80s to low 90s and she reported that she had recently been started on oxygen at 3 L of the cannula though she was not always using it however has been compliant since that time. She was sent home with a prescription for Keflex for urinary tract infection and her urine culture did grow out fluoroquinolone resis
[2023-04-23 16:29] LABS: SARS-CoV-2 RNA PCR Negative (Negative)
[2023-04-23] MEDS: RIVAROXABAN 15 MG TABLET PO (17:22)
== END 2023-04-23 21:51 | DRG 193 ==
LOC: ANHED 10:42 → ANHIMU 15:27 → ANH3MEDSUR 04-18 14:20
PROVIDERS: Family Medicine; Internal Medicine; Physician Assistant; Admitting Provider Internal Medicine; Emergency Provider Emergency Medicine; PCP Family Medicine; Visit Provider Family Medicine
DX: J18.9 Pneumonia, unspecified organism (principal); J96.21 Acute and chronic respiratory failure with hypoxia; J96.22 Acute and chronic respiratory failure with hypercapnia; I48.92 Unspecified atrial flutter; J44.0 Chronic obstructive pulmonary disease with (acute) lower respiratory infection; R13.10 Dysphagia, unspecified; D75.1 Secondary polycythemia; E03.9 Hypothyroidism, unspecified; E53.8 Deficiency of other specified B group vitamins; F41.1 Generalized anxiety disorder; I10 Essential (primary) hypertension; I08.0 Rheumatic disorders of both mitral and aortic valves; I48.0 Paroxysmal atrial fibrillation; M41.9 Scoliosis, unspecified; Z91.81 History of falling; Z20.822 Contact with and (suspected) exposure to COVID-19; Z79.01 Long term (current) use of anticoagulants; Z98.49 Cataract extraction status, unspecified eye; Z96.1 Presence of intraocular lens; Z90.89 Acquired absence of other organs; Z96.612 Presence of left artificial shoulder joint; Z96.611 Presence of right artificial shoulder joint; Z99.81 Dependence on supplemental oxygen
CPT/HCPCS: 36415; 36600; 70450; 71045; 80048; 80076; 80307; 81001; 82375; 82805; 82948; 83050; 83735; 84100; 85025; 85027; 87040; 87635; 87637; 92610; 92611; 93005; 93306; 94002; 94003; 94618; 94640; 96361; 96365; 96366; 96367; 96375; 97110; 97116; 97161; 97165; 97530; 97535; 99285; A9270; G0378; J0456; J0696; J2543; J7040

== ENCOUNTER 2023-04-29 07:14 | Emergency (ER) | payer OTHER, MEDICARE, SELFPAY ==
[2023-04-29] VITALS (42 sets, daily range): BP systolic 79–122; BP diastolic 45–101; PULSE 83–101; RESP 10–20; TEMP 34.8–38.1; O2SAT 93–100
--- NOTE | ~2023-04-29 | XR_ITS ---
Portable chest x-ray Comparison: 04/21/2023 Clinical History: Tube placement Findings: Endotracheal tube is in satisfactory position. There are small bilateral pleural effusions with probable bibasilar pulmonary edema/atelectasis. Cardiomediastinal silhouette is stable. Bilate ral shoulder arthroplasties are present. Suspected moderate to large hiatal hernia. S-shaped scoliosi s of the spine again noted. Impression: ET tube in satisfactory position. Small bilateral pleural effusions with probable mild to moderate pulmonary edema. Suspected moderate to large hiatal hernia. Reviewed, dictated and finalized at location . SPECIALIST Impression: ET tube in satisfactory position. Small bilateral pleural effusions with probable mild to moderate pulmonary skyla a. Suspected moderate to large hiatal hernia.
[2023-04-29] MEDS: FENTANYL 2,500MCG/NS250ML(*CRX 2,500 MCG/250 ML BAG IV CONT (07:35)
[2023-04-29] MEDS: MIDAZOLAM 100MG/NS 100ML(*CRX) 100 MG/100 ML BAG IV CONT (07:35)
--- NOTE | 2023-04-29 07:57 | ED.GENADULT ---
HPI - General Adult General Chief complaint: Altered Mental Status Stated complaint: ams Time Seen by Provider: 04/29/23 07:25 History of Present Illness HPI narrative: patient is an 83-year-old female who was found unresponsive at her facility. EMS arrived the patient hypoxic the 40s. Upon arrival to the ER patient being bagged minimally responsive. She only opens her eyes. POLST form shows she is a full code. Related Data Home Medications Medication Instructions Recorded Confirmed calcium carbonate 600 mg-vitamin 1 cap PO DAILY 04/14/19 04/16/23 D3 5 mcg (200 unit) capsule (Calcium 600 + D(3)) [id number] 8 mg-folic 400 2 tablet PO DAILY 04/14/19 04/16/23 mcg-K 50 mcg-lutein 300 mcg tablet (Centrum Silver Women) polysaccharide iron complex 150 mg 150 mg PO DAILY 03/14/23 04/16/23 iron capsule (iFerex 150) carvedilol 6.25 mg tablet 6.25 mg Q12H 04/16/23 04/16/23 cholecalciferol (vitamin D3) 25 1,000 unit DAILY 04/16/23 04/16/23 mcg (1,000 unit) capsule escitalopram oxalate 10 mg tablet 10 mg DAILY 04/16/23 04/16/23 potassium chloride 10 mEq 10 meq PO DAILY 04/16/23 04/16/23 tablet,extended release sennosides 8.6 mg tablet (senna) 8.6 mg PO DAILY 04/16/23 04/16/23 Allergies Allergy/AdvReac Type Severity Reaction Status Date / Time Sulfa (Sulfonamide Allergy Mild rash Verified 04/09/23 13:53 Antibiotics) Review of Systems Review of Systems: ROS unobtainable: Yes unobtainable due to medical condition [facility] Past Medical History Medical History (Updated 04/29/23 @ 13:34 by Pasquale Hylton MD) Arthritis B12 deficiency Chronic anticoagulation Chronic respiratory failure with hypoxia, on home oxygen therapy Generalized anxiety disorder Hypertension Hypothyroidism Kyphoscoliosis Mitral regurgitation and aortic stenosis Osteoporosis Paroxysmal atrial fibrillation Paroxysmal atrial flutter Polycythemia Rectal prolapse Vaginal prolapse without uterine prolapse Surgical History Surgical History (Updated 04/16/23 @ 15:06 by Maude Perea PA-C) History of cataract extraction with lens replacement History of colonoscopy (07/2000) Left-sided diverticulosis, collagenous/microscopic colitis, internal hemorrhoidal tissue. History of esophagogastroduodenoscopy (06/2000) Esophageal stricture and hiatal hernia. History of inguinal hernia repair History of partial thyroidectomy History of replacement of both shoulder joints Family History Family History (Updated 04/16/23 @ 15:16 by Maude Perea PA-C) Other Family history non-contributory Social History Social History (Updated 04/16/23 @ 15:19 by Maude Perea PA-C) Social History: Surrogate medical decision maker: Ayan Wright, son. Code status: Full code. Smoking status: Never smoker Second hand tobacco smoke exposure: No Alcohol intake: current Drinks per week: 21 Alcohol use details: History of alcohol abuse. Substance use: never Substance use type: does not use Do You Feel Safe in your Home?: Yes Lack of Transportation: No Lack of Food: Never True Current Housing: I Have Housing Concerned About Future Housing: No Difficulty Paying Gas/Electric Bills: No Difficulty Paying for Meds: No Currently Unemployed: No Education: Bachelor's Degree Difficulty w/ Childcare or Family Care: No Living arrangements: assisted living Additional living arrangements comments: Lives in assisted living at [facility]. 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 Spiritual care concerns: No Agree to blood products: Yes Exam Narrative: GENERAL: ill-appearing, thin, unresponsive. HEAD: Normocephalic, atraumatic. ENT: Dry mucous membranes. NECK: Supple. CHEST: No respiratory effort. HEART: Regular rate and rhythm. Poor capillary refill. ABDOMEN: Soft, nontender, nondistended. EXTREMITIES: No defor
[2023-04-29] MEDS: MIDAZOLAM HCL (*CRX) 2 MG/2 ML VIAL IV PUSH (08:21)
[2023-04-29 08:26] LABS: Alveolar/Arterial O2 Gradient 552.9 mmHg; Base Excess ABG 15.4 mEq/l (+/-2.0); Fractional Inspired Oxygen 100 %; HCO3 ABG 42.7 mEq/l (22.0-26.0); Oxygen Content ABG 20.3 %vol (16.0-22.0); Oxygen Saturation ABG 97.6 % (95.0-100.0); Oxyhemoglobin 95.8 % THb (90.0-100.0); PO2 ABG 98.3 mmHg (80.0-100.0); PO2 FiO2 Ratio Arterial Blood 0.98 %; pH ABG 7.457 (7.350-7.450)
[2023-04-29 08:30] LABS: Modified Allen's Test Pass; PCO2 ABG 61.8 mmHg (35.0-45.0); Site Drawn LEFT RADIAL
[2023-04-29 08:31] LABS: Device VENTILATOR
[2023-04-29 08:32] LABS: Arterial Blood Gas PEEP 5 cmH2O; Arterial Blood Gas Pressure Support 0 cmH2O; Arterial Blood Gas Tidal Volume 300 ml; Arterial Blood Gas Vent Mode CMV; Arterial Blood Gas Ventilator rate 12 /MIN
--- NOTE | 2023-04-29 08:36 | PC.NURSE ---
0717 30mg of Etomidate administered by Kassandra, RN 0720 7 inch tube secured at 22 @ the lip 0735 Fentanyl started 25 mcg/hr 0735 Versed started at 1mg/hr 0741 Versed 2mg IV push per verbal order of Dr. Hylton
[2023-04-29] MEDS: SODIUM CHLORIDE 0.9% IV 1,000 ML 999 ML IV CONT (08:45)
--- NOTE | 2023-04-29 09:06 | PC.NURSE ---
Pts sons at bedside, Dr. Hylton aware.
[2023-04-29 09:08] LABS: Basophils Absolute Auto 0.2 K/mm3 (0.0-0.1); Hematocrit 48.7 % (37.0-47.0); Immature Granulocyte Absolute 1.51 K/mm3 (0.00-0.031); Immature Granulocyte Percent A 6.6 % (0-0.5); Lymphocytes Absolute Auto 0.68 K/mm3 (0.9-3.2); Mean Corpuscular HGB Conc 28.7 g/dl (32-36); Mean Corpuscular Hemoglobin 28.5 pg (26-34); Mean Platelet Volume 10.1 fl (7.4-10.4); Monocytes Absolute Auto 1.6 K/mm3 (0.1-0.6); Monocytes Percent Auto 6.7 % (2.6-8.5); Neutrophils Percent Auto 82.7 % (45.5-73.1); Platelet Count Result 348 k/mm3 (150-375); Red Blood Count 4.92 M/mm3 (4.2-5.4); Red Cell Distribution Width 15.1 % (11.5-14.5)
[2023-04-29 09:19] LABS: Alanine Aminotransferase 54 U/L (6-35); Albumin Level 3.2 g/dL (3.5-5.1); Alkaline Phosphatase 95 U/L (38-126); Anion Gap 6 mmol/L (8-16); Aspartate Amino Transferase 94 U/L (14-36); Bilirubin,Total 1.3 mg/dL (0.2-1.3); Blood Urea Nitrogen 21 mg/dL (7-17); Calcium 10.2 mg/dL (8.4-10.2); Carbon Dioxide 37 mmol/L (22-30); Chloride 91 mmol/L (98-107); Estimated Glomerular Filt Rate > 60; Glucose 122 mg/dL (65-110); Potassium 5.8 mmol/L (3.4-5.0); Sodium 134 mmol/L (137-145)
[2023-04-29 09:36] LABS: Troponin I 0.529 ng/mL (0.000-0.034)
[2023-04-29 10:07] LABS: Lactic Acid Reflex 2.2 mmol/L (0.7-2.0)
[2023-04-29 10:10] LABS: INR 2.6; Prothrombin Time 29.4 Seconds (11.1-14.7)
[2023-04-29 10:11] LABS: Partial Thromboplastin Time 38.3 SECONDS (22.3-36.8)
[2023-04-29 10:14] LABS: Bacteria Urine 2+ /hpf; Need Manual Microscopic Reviewed; Non Pathogenic Casts >20; RBC Urine >100 /hpf (0-2); Squamous Epithelial Cell Urine Moderate /hpf (Few); WBC Urine >100 /hpf
[2023-04-29 10:17] LABS: Appearance Urine Turbid (Clear); Blood Urine 2+ (Negative); Color Urine Red (Yellow); Glucose Urine UA Negative (Negative); Ketones Urine Negative (Negative); Leukocyte Esterase Ur 2+ LEU/UL (Negative); Protein Urine 2+ mg/dL (Negative); Urobilinogen Urine 0.2 mg/dL (<2.0)
[2023-04-29 10:18] LABS: Add Urine Microscopic? YES; Bilirubin Urine Unable to determine (Negative); Nitrate Urine Unable to determine (Negative)
--- NOTE | 2023-04-29 10:45 | PCCCNOTE ---
After speaking with Dr Hylton and the pt tamica [facility]cios for hospice. Referral made to [facility] and information faxed to [facility].
[2023-04-29 12:51] LABS: Reflex Lactic Acid Yes or No Add Lactic
--- NOTE | 2023-04-29 13:19 | PC.NURSE ---
1319 Versed and Fentanyl d/c per verbal order Dr. Hylton
--- NOTE | 2023-04-29 13:30 | PC.NURSE ---
1329 Pt extubated by ED respiratory with MD and RN at bedside.
--- NOTE | 2023-04-29 13:39 | PC.NURSE ---
1339 4mg Morphine IV push administered per verbal order of Dr. Hylton
[2023-04-29] MEDS: MORPHINE SULFATE (*CRX) 4 MG/ML INJ IV PUSH (13:44)
--- NOTE | 2023-04-29 13:56 | PC.NURSE ---
13[address] time of called by Dr[address] Hylton
--- NOTE | 2023-04-29 22:32 | PM.IMHP ---
H&P: HPI History of Present Illness Date/Time: 04/29/23 22:32 Chief Complaint: Uncontrolled dyspnea Narrative: This 83 y/o female was discharged from [facility] earlier today but return to hospital by facility due to increasing oxygen requirements and decreasing responsiveness. Upon arrival at the ED she was intubated but family opted for extubation and comfort care on inpatient hospice service. At that time she was unresponsive to verbal and tactile stimuli. While hospitalized she was treated for UTI, PAF, CHF, and hypoxia. Echo showed severe with moderate MR, LVH with EF over 70% and pHTN at 43 mmHg. At discharge she required 3 L oxygen by [facility]. Review of Systems Review of Systems: ROS unobtainable: Yes unobtainable due to medical condition PMF Past Medical History Medical History Arthritis B12 deficiency Chronic anticoagulation Chronic respiratory failure with hypoxia, on home oxygen therapy Generalized anxiety disorder Hypertension Hypothyroidism Kyphoscoliosis Mitral regurgitation and aortic stenosis Osteoporosis Paroxysmal atrial fibrillation Paroxysmal atrial flutter Polycythemia Rectal prolapse Vaginal prolapse without uterine prolapse Surgical History Surgical History History of cataract extraction with lens replacement History of colonoscopy (07/2000) Left-sided diverticulosis, collagenous/microscopic colitis, internal hemorrhoidal tissue. History of esophagogastroduodenoscopy (06/2000) Esophageal stricture and hiatal hernia. History of inguinal hernia repair History of partial thyroidectomy History of replacement of both shoulder joints Family History Family History Other Family history non-contributory Social History Social History Social History: Surrogate medical decision maker: Ayan Wright, son. Code status: Full code. Smoking status: Never smoker Second hand tobacco smoke exposure: No Alcohol intake: current Drinks per week: 21 Alcohol use details: History of alcohol abuse. Substance use: never Substance use type: does not use Do You Feel Safe in your Home?: Yes Lack of Transportation: No Lack of Food: Never True Current Housing: I Have Housing Concerned About Future Housing: No Difficulty Paying Gas/Electric Bills: No Difficulty Paying for Meds: No Currently Unemployed: No Education: Bachelor's Degree Difficulty w/ Childcare or Family Care: No Living arrangements: assisted living Additional living arrangements comments: Lives in assisted living at [place]. 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 Spiritual care concerns: No Agree to blood products: Yes Meds Home Medications and Allergies Home Medications Medication Instructions Recorded Confirmed Type calcium carbonate 600 mg-vitamin 1 cap PO DAILY 04/14/19 04/16/23 History D3 5 mcg (200 unit) capsule (Calcium 600 + D(3)) [id number] 8 mg-folic 400 2 tablet PO DAILY 04/14/19 04/16/23 History mcg-K 50 mcg-lutein 300 mcg tablet (Centrum Silver Women) hydrochlorothiazide 25 mg tablet 25 mg PO DAILY #90 tabs 12/20/20 04/16/23 Rx levothyroxine 100 mcg tablet 100 mcg PO DAILY #90 tabs 12/20/20 04/16/23 Rx rivaroxaban 15 mg tablet (Xarelto) See Rx Instructions .Route 08/14/21 04/16/23 Rx .COMPLEX #30 tabs hydrocortisone 2.5 % topical cream 1 applic topical BID #20 grams 02/13/22 04/16/23 Rx polysaccharide iron complex 150 mg 150 mg PO DAILY 03/14/23 04/16/23 History iron capsule (iFerex 150) calcitonin (salmon) 200 1 spray intranasal (ALT) DAILY 3 03/18/23 04/16/23 Rx unit/actuation nasal spray months #3.7 mL polyethylene glycol 3350 17 gram 17 g PO DAILY #100 ea
--- NOTE | 2023-04-29 22:45 | PM.DDS ---
Discharge Summary Date and Time Date of : 04/29/23 Time of : 13:52 Provider Pronounced By: Dr. Karina Hylton Probable Cause of Probable Cause of : Acute on chronic hypoxic respiratory failure due to pulmonary edema due to HFpEF due to severe aortic stenosis Summary Hospital Course: Admitted to inpatient hospice due to uncontrolled dysppnea. Medications titrated to comfort. Mrs. Wright peacefully. 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
== END 2023-04-29 15:25 | disposition expired ==
PROVIDERS: Emergency Provider Emergency Medicine; PCP Family Medicine
DX: A41.9 Sepsis, unspecified organism (principal); N39.0 Urinary tract infection, site not specified; J96.90 Respiratory failure, unspecified, unspecified whether with hypoxia or hypercapnia; I10 Essential (primary) hypertension; E03.9 Hypothyroidism, unspecified; E53.8 Deficiency of other specified B group vitamins; I48.0 Paroxysmal atrial fibrillation; Z99.81 Dependence on supplemental oxygen; J96.11 Chronic respiratory failure with hypoxia
CPT/HCPCS: 31500; 36415; 36600; 80053; 81001; 82805; 83605; 84484; 85025; 85610; 85730; 87086; 94002; 96365; 96366; 96368; 96375; 99291; J2250; J2270; J3010; J7030